=== PATIENT | male | born 1955 | race African-American/Black ===

== ENCOUNTER 2017-04-08 12:35 | Emergency (ER) | payer OTHER ==
[~2017-04-08] VITALS: Ht 172.7 cm; Wt 56.8 kg
[2017-04-08 12:36] VITALS: BP 144/89
== END 2017-04-08 13:30 | disposition left against medical advice (07) ==
LOC: M ED 12:35
DX: Z53.21 Procedure and treatment not carried out due to patient leaving prior to being seen by health care provider (principal)

== ENCOUNTER 2017-09-19 07:25 | Inpatient (IN) | payer OTHER ==
[2017-09-19 07:37] LABS: BASO % 0.1 % (0.0-1.0); HEMATOCRIT 30.5 % (42.0-52.0); HEMOGLOBIN 11.1 g/dl (13.5-17.5); IMMATURE GRANULOCYTE % 0.4 % (0-3.0); LYMPH # 0.8 10^3/uL (1.5-4.5); LYMPH % 10.5 % (24.0-44.0); MEAN CORPUSCULAR HEMOGLOBIN 31.9 pg (27.0-33.0); MEAN CORPUSCULAR HGB CONC 36.4 g/dl (32.0-36.5); MEAN CORPUSCULAR VOLUME 87.6 fl (80.0-96.0); MONO # 0.6 10^3/uL (0.0-0.8); MONO % 7.6 % (0.0-5.0); NEUTROPHILS # 6.3 10^3/uL (1.8-7.7); NEUTROPHILS % 81.4 % (36.0-66.0); PLATELET COUNT, AUTOMATED 135 10^3/uL (150-450); RED BLOOD COUNT 3.48 10^6/uL (4.30-6.10); RED CELL DISTRIBUTION WIDTH 14.4 % (11.5-14.5); WHITE BLOOD COUNT 7.8 10^3/uL (4.0-10.0)
[2017-09-19 07:40] LABS: POS COUNT POS FLAG
[2017-09-19 07:49] LABS: INR 0.92; PROTHROMBIN TIME 12.4 SECONDS (12.4-14.5)
[2017-09-19 07:51] LABS: AMMONIA 23 uMOL/L (<32)
[2017-09-19 08:03] LABS: PARTIAL THROMBOPLASTIN TIME 23.4 SECONDS (26.8-37.9)
[2017-09-19 08:06] LABS: ALBUMIN 3.1 GM/DL (3.2-5.2); ALKALINE PHOSPHATASE 87 U/L (45-117); ALT/SGPT 73 U/L (12-78); ANION GAP 15 MEQ/L (8-16); AST/SGOT 136 U/L (7-37); BILIRUBIN,DIRECT 0.5 MG/DL (0.0-0.2); BILIRUBIN,TOTAL 1.3 MG/DL (0.2-1.0); BLOOD UREA NITROGEN 28 MG/DL (7-18); CALCIUM LEVEL 8.5 MG/DL (8.8-10.2); CARBON DIOXIDE LEVEL 22 MEQ/L (21-32); CHLORIDE LEVEL 90 MEQ/L (98-107); CREATININE FOR GFR 1.11 MG/DL (0.70-1.30); GLOMERULAR FILTRATION RATE > 60.0 (>49); GLUCOSE, FASTING 154 MG/DL (70-100); LIPASE 110 U/L (73-393); MAGNESIUM LEVEL 1.4 MG/DL (1.8-2.4); POTASSIUM SERUM 3.5 MEQ/L (3.5-5.1); SODIUM LEVEL 127 MEQ/L (136-145); TOTAL PROTEIN 7.5 GM/DL (6.4-8.2); TROPONIN I < 0.02 NG/ML (< 0.10)
[2017-09-19 08:16] LABS: CK-MB VALUE MASS 1.7 NG/ML (<3.6); CPK CREATINE PHOSPHOKINASE 1617 U/L (39-308); NT-PRO BNP 292 PG/ML (<125)
[2017-09-19 08:19] LABS: ETHYL ALCOHOL (ETHANOL) < 0.003 % (0.000-0.010)
[2017-09-19 08:25] LABS: FOLATE 10.4 NG/ML (>5.4)
[2017-09-19 09:01] LABS: KETONE, URINE AUTO RFX 1+ mg/dL (NEGATIVE); MUCUS, URINE RFX SMALL (NEGATIVE); NITRITE, URINE AUTO RFX NEGATIVE (NEGATIVE); RBC, URINE AUTO RFX 2 /HPF (0-3); SPECIFIC GRAVITY UR AUTO RFX 1.026 (1.002-1.035); SQUAM EPITHELIAL CELL UR AURFX 0 /HPF (0-6)
[2017-09-19 09:12] LABS: LEUKOCYTE ESTERASE UR AUTO RFX 1+ (NEGATIVE); WBC, URINE AUTO RFX 16 /HPF (0-3)
[2017-09-19] MEDS: FOLIC ACID 1 MG TAB PO (10:25)
[2017-09-19] MEDS: MULTIVITAMINS/MINERALS THERAP 1 TAB PO (10:26)
[2017-09-19] MEDS: THIAMINE 100 MG TAB PO (10:26)
[2017-09-19] MEDS: POTASSIUM CHLORIDE 10 MEQ SR TABLET PO (10:28)
[2017-09-19] MEDS ORDERED: OXAZEPAM 10 MG CAP PO ×2 (10:30→12:15)
[2017-09-19] MEDS: MAG SULF 1GM/100ML (MAG RUN) 1 GM in APPROPRIATE DILUENT 1 EA IV (10:31)
[2017-09-19] MEDS ORDERED: ONDANSETRON 4MG/2ML VIAL (J2405) IV (11:45)
[2017-09-19] MEDS ORDERED: ACETAMINOPHEN TAB 650MG DOSE (2X325MG) PO (11:45)
[2017-09-19] MEDS ORDERED: OXAZEPAM 15 MG CAP PO (12:00)
[2017-09-19] MEDS: OXAZEPAM 10 MG CAP PO ×2 (15:52→21:16)
[2017-09-19] MEDS: PANTOPRAZOLE 40MG TAB (PROTONIX) PO (15:52)
[2017-09-19] MEDS: ENOXAPARIN 40 MG/0.4 ML SYRINGE (J1650) SC (15:53)
[2017-09-19] MEDS: SENOKOT S TAB PO (21:00)
[2017-09-20 05:34] LABS: HEMOGLOBIN 11.4 g/dl (13.5-17.5); MEAN CORPUSCULAR HEMOGLOBIN 31.5 pg (27.0-33.0); MEAN CORPUSCULAR HGB CONC 35.6 g/dl (32.0-36.5); MEAN CORPUSCULAR VOLUME 88.4 fl (80.0-96.0); PLATELET COUNT, AUTOMATED 152 10^3/uL (150-450); RED BLOOD COUNT 3.62 10^6/uL (4.30-6.10); RED CELL DISTRIBUTION WIDTH 14.2 % (11.5-14.5)
[2017-09-20 05:51] LABS: ESTIMATED AVERAGE GLUCOSE 82 MG/DL (60-110); HEMOGLOBIN A1c 4.5 %
[2017-09-20 05:56] LABS: ALBUMIN 3.1 GM/DL (3.2-5.2); ALBUMIN/GLOBULIN RATIO 0.72 (1.00-1.93); ALKALINE PHOSPHATASE 86 U/L (45-117); ALT/SGPT 69 U/L (12-78); ANION GAP 9 MEQ/L (8-16); AST/SGOT 129 U/L (7-37); BILIRUBIN,DIRECT 0.3 MG/DL (0.0-0.2); BILIRUBIN,TOTAL 0.9 MG/DL (0.2-1.0); BLOOD UREA NITROGEN 22 MG/DL (7-18); CALCIUM LEVEL 8.7 MG/DL (8.8-10.2); CARBON DIOXIDE LEVEL 27 MEQ/L (21-32); CHLORIDE LEVEL 93 MEQ/L (98-107); CHOLESTEROL LEVEL 171 MG/DL (<200); CHOLESTEROL RISK RATIO 3.226 (<5); CREATININE FOR GFR 0.74 MG/DL (0.70-1.30); FERRITIN 511 NG/ML (26-388); GLOMERULAR FILTRATION RATE > 60.0 (>49); GLUCOSE, FASTING 79 MG/DL (70-100); HDL CHOLESTEROL 53 MG/DL (>40); IRON (FE) 40 UG/DL (65-175); LDL CHOLESTEROL 96.8 MG/DL (<100); MAGNESIUM LEVEL 1.9 MG/DL (1.8-2.4); NON-HDL-C 118 MG/DL; PERCENT SATURATION 16.1 % (19.7-50.0); POTASSIUM SERUM 3.6 MEQ/L (3.5-5.1); SODIUM LEVEL 129 MEQ/L (136-145); TOTAL IRON BINDING CAPACITY 248 UG/DL (250-450); TOTAL PROTEIN 7.4 GM/DL (6.4-8.2); TRIGLYCERIDES LEVEL 106 MG/DL (<150)
[2017-09-20] MEDS: PANTOPRAZOLE 40MG TAB (PROTONIX) PO (09:05)
[2017-09-20] MEDS: OXAZEPAM 10 MG CAP PO ×3 (09:06→19:59)
[2017-09-20] MEDS: FOLIC ACID 1 MG TAB PO (09:06)
[2017-09-20] MEDS: ENOXAPARIN 40 MG/0.4 ML SYRINGE (J1650) SC (09:06)
[2017-09-20] MEDS: THIAMINE 100 MG TAB PO (09:06)
[2017-09-20] MEDS: MULTIVITAMINS/MINERALS THERAP 1 TAB PO (09:06)
[2017-09-20] MEDS: POTASSIUM CHLORIDE 10 MEQ SR TABLET PO (11:57)
[2017-09-21 06:07] LABS: HEMATOCRIT 31.8 % (42.0-52.0); HEMOGLOBIN 11.2 g/dl (13.5-17.5); MEAN CORPUSCULAR HEMOGLOBIN 31.6 pg (27.0-33.0); MEAN CORPUSCULAR HGB CONC 35.2 g/dl (32.0-36.5); MEAN CORPUSCULAR VOLUME 89.8 fl (80.0-96.0); PLATELET COUNT, AUTOMATED 194 10^3/uL (150-450); RED BLOOD COUNT 3.54 10^6/uL (4.30-6.10); RED CELL DISTRIBUTION WIDTH 14.6 % (11.5-14.5); WHITE BLOOD COUNT 6.8 10^3/uL (4.0-10.0)
[2017-09-21 06:23] LABS: ALBUMIN 3.1 GM/DL (3.2-5.2); ALBUMIN/GLOBULIN RATIO 0.76 (1.00-1.93); ALKALINE PHOSPHATASE 85 U/L (45-117); ALT/SGPT 84 U/L (12-78); ANION GAP 6 MEQ/L (8-16); AST/SGOT 143 U/L (7-37); BILIRUBIN,DIRECT 0.2 MG/DL (0.0-0.2); BILIRUBIN,TOTAL 0.7 MG/DL (0.2-1.0); BLOOD UREA NITROGEN 15 MG/DL (7-18); CALCIUM LEVEL 8.9 MG/DL (8.8-10.2); CARBON DIOXIDE LEVEL 31 MEQ/L (21-32); CHLORIDE LEVEL 96 MEQ/L (98-107); CREATININE FOR GFR 0.82 MG/DL (0.70-1.30); GLOMERULAR FILTRATION RATE > 60.0 (>49); GLUCOSE, FASTING 87 MG/DL (70-100); MAGNESIUM LEVEL 1.8 MG/DL (1.8-2.4); POTASSIUM SERUM 4.2 MEQ/L (3.5-5.1); SODIUM LEVEL 133 MEQ/L (136-145); TOTAL PROTEIN 7.2 GM/DL (6.4-8.2)
[2017-09-21 08:06] LABS: HEPATITIS A IgG TOTAL Positive (Negative)
[2017-09-21] MEDS: FOLIC ACID 1 MG TAB PO (08:14)
[2017-09-21] MEDS: PANTOPRAZOLE 40MG TAB (PROTONIX) PO (08:14)
[2017-09-21] MEDS: ENOXAPARIN 40 MG/0.4 ML SYRINGE (J1650) SC (08:14)
[2017-09-21] MEDS: OXAZEPAM 10 MG CAP PO ×2 (08:14→20:40)
[2017-09-21] MEDS: MULTIVITAMINS/MINERALS THERAP 1 TAB PO (08:14)
[2017-09-21] MEDS: THIAMINE 100 MG TAB PO (08:14)
[2017-09-22 00:08] LABS: VITAMIN B6,PYRIDOXAL PHOSPHATE 5.2 ug/L (5.3-46.7)
[2017-09-22 05:33] LABS: HEMATOCRIT 30.4 % (42.0-52.0); HEMOGLOBIN 10.7 g/dl (13.5-17.5); MEAN CORPUSCULAR HEMOGLOBIN 31.7 pg (27.0-33.0); MEAN CORPUSCULAR HGB CONC 35.2 g/dl (32.0-36.5); MEAN CORPUSCULAR VOLUME 89.9 fl (80.0-96.0); PLATELET COUNT, AUTOMATED 226 10^3/uL (150-450); RED BLOOD COUNT 3.38 10^6/uL (4.30-6.10); RED CELL DISTRIBUTION WIDTH 14.6 % (11.5-14.5); WHITE BLOOD COUNT 6.4 10^3/uL (4.0-10.0)
[2017-09-22 05:53] LABS: ALBUMIN 2.9 GM/DL (3.2-5.2); ALBUMIN/GLOBULIN RATIO 0.73 (1.00-1.93); ALKALINE PHOSPHATASE 84 U/L (45-117); ALT/SGPT 92 U/L (12-78); ANION GAP 5 MEQ/L (8-16); AST/SGOT 132 U/L (7-37); BILIRUBIN,DIRECT 0.2 MG/DL (0.0-0.2); BILIRUBIN,TOTAL 0.5 MG/DL (0.2-1.0); BLOOD UREA NITROGEN 14 MG/DL (7-18); CALCIUM LEVEL 8.7 MG/DL (8.8-10.2); CARBON DIOXIDE LEVEL 29 MEQ/L (21-32); CHLORIDE LEVEL 98 MEQ/L (98-107); GLOMERULAR FILTRATION RATE > 60.0 (>49); GLUCOSE, FASTING 88 MG/DL (70-100); MAGNESIUM LEVEL 1.8 MG/DL (1.8-2.4); POTASSIUM SERUM 3.7 MEQ/L (3.5-5.1); SODIUM LEVEL 132 MEQ/L (136-145); TOTAL PROTEIN 6.9 GM/DL (6.4-8.2)
[2017-09-22] MEDS: MULTIVITAMINS/MINERALS THERAP 1 TAB PO (08:13)
[2017-09-22] MEDS: ENOXAPARIN 40 MG/0.4 ML SYRINGE (J1650) SC (08:13)
[2017-09-22] MEDS: PANTOPRAZOLE 40MG TAB (PROTONIX) PO (08:13)
[2017-09-22] MEDS: THIAMINE 100 MG TAB PO (08:13)
[2017-09-22] MEDS: FOLIC ACID 1 MG TAB PO (08:13)
[2017-09-22] MEDS: OXAZEPAM 10 MG CAP PO (08:13)
[2017-09-22 10:19] LABS: HEPATITIS B SURFACE ANTIBODY NEGATIVE (POSITIVE)
[2017-09-22 10:28] LABS: HEPATITIS B SURFACE ANTIGEN NEGATIVE (NEGATIVE)
[2017-09-22 10:54] LABS: HEPATITIS C VIRUS ABY INDEX 0.1 INDEX (<0.8)
[2017-09-22 10:55] LABS: HEPATITIS A ANTIBODY IGM NEGATIVE (NEGATIVE)
== END 2017-09-22 12:58 | disposition home or self-care (01) | DRG 898 ==
LOC: M ED 07:25 → M ED INP 12:05 → M MSPAV 13:31
DX: F10.231 Alcohol dependence with withdrawal delirium (principal); E87.1 Hypo-osmolality and hyponatremia; F17.200 Nicotine dependence, unspecified, uncomplicated; E87.8 Other disorders of electrolyte and fluid balance, not elsewhere classified; F03.90 Unspecified dementia, unspecified severity, without behavioral disturbance, psychotic disturbance, mood disturbance, and anxiety; R74.0 Nonspecific elevation of levels of transaminase and lactic acid dehydrogenase [LDH]; I49.3 Ventricular premature depolarization; R26.81 Unsteadiness on feet; G31.9 Degenerative disease of nervous system, unspecified; Z88.0 Allergy status to penicillin

== ENCOUNTER 2020-12-08 13:30 | Inpatient (IN) | payer OTHER ==
[~2020-12-08] VITALS: Ht 172.7 cm; Wt 49.8 kg
[~2020-12-08 13:30] MED LIST: FOLI1TAB11 PO; THIA100TA PO; VITMTA PO
--- NOTE | 2020-12-08 13:52 | REP ---
INDICATION: CVA - Nursing interventions must not delay CT. COMPARISON: Comparison head CT study September 19, 2017.. TECHNIQUE: Helical scanning is acquired. 5 mm axial images were reformatted. Coronal MPR images were generated. FINDINGS: Digital preliminary carbon grinder radiograph is unremarkable. On bone window settings there is a poly sinusitis with extensive opacification in the frontal sinuses and in the maxillary sinuses bilaterally. There are air-fluid levels in the frontal sinuses. Minimal mucosal thickening is seen in the ethmoid air cells. And sphenoid sinuses. Mastoid aeration is normal and symmetric. No bony calvarial lesion is seen. On soft tissue window settings there is moderate generalized volume loss. Fairly extensive vascular calcification is observed at the skull base. There is no evidence of intracranial hemorrhage. Vascular calcification is observed. There is a new 6 mm low-density area in the anterior limb of the internal capsule on the right consistent with a lacunar infarct. This was not apparent on the September 19, 2017 prior study. There are small vessel atherosclerotic changes. There is no extra-axial fluid collection, cortical infarct, or midline shift. IMPRESSION: Vascular calcification moderate generalized volume loss. 6 mm low-density in the anterior limb of the internal capsule on the right appears to be a new finding consistent with lacunar infarction. No intracranial hemorrhage.. <Electronically signed by César Thorpe > 12/08/20 [id number]
--- NOTE | 2020-12-08 14:38 | REP ---
INDICATION: CVA. COMPARISON: None. TECHNIQUE: Single portable AP view of the chest was performed. FINDINGS: There is no acute infiltrate or pulmonary edema. Lungs are clear. The heart is not significantly enlarged. The mediastinal silhouette is unremarkable. The visualized osseous structures are intact. IMPRESSION: No acute pulmonary disease. <Electronically signed by Cuate Lin > 12/08/20 [id number]
[2020-12-08 14:39] LABS: HEMATOCRIT 40.6 % (42.0-52.0); HEMOGLOBIN 14.2 g/dl (13.5-17.5); MEAN CORPUSCULAR HEMOGLOBIN 30.9 pg (27.0-33.0); MEAN CORPUSCULAR VOLUME 88.5 fl (80.0-96.0); PLATELET COUNT, AUTOMATED 184 10^3/uL (150-450); RED BLOOD COUNT 4.59 10^6/uL (4.30-6.10); WHITE BLOOD COUNT 8.1 10^3/uL (4.0-10.0)
[2020-12-08] MEDS ORDERED: ASPIRIN 81 MG CHEW TABLET PO ONE (14:50)
[2020-12-08] MEDS ORDERED: MULTIVITAMIN -ADULT INJECTION 10 ML, THIAMINE INJection 100 MG, FOLIC ACID 1 MG in NS 1... IV ONE (14:55)
[2020-12-08] MEDS ORDERED: HOME MED LIST COMPLETE! XX SCH (15:15)
[2020-12-08 15:20] LABS: CK-MB VALUE MASS 1.5 NG/ML (<3.6); CPK CREATINE PHOSPHOKINASE 1080 U/L (39-308); MB/CK RELATIVE INDEX 0.14 (< OR =4); TROPONIN I < 0.02 NG/ML (< 0.10)
[2020-12-08] MEDS ORDERED: ACETAMINOPHEN TAB 650MG DOSE (2X325MG) PO PRN (16:00)
[2020-12-08 16:02] LABS: BASOPHILS 1 % (0-1); LYMPHOCYTES 7 % (16-44); MONOCYTES 4 % (0-5)
[2020-12-08 16:04] LABS: TARGET CELLS 2+
[2020-12-08 16:05] LABS: TEAR DROP CELLS 1+
[2020-12-08 16:07] LABS: NEUTROPHILS 65 % (28-66); PLATELET ESTIMATE NORMAL (NORMAL)
[2020-12-08 16:28] LABS: CHOLESTEROL LEVEL 156 MG/DL (<200); CHOLESTEROL RISK RATIO 2.437 (<5); HDL CHOLESTEROL 64 MG/DL (>40); LDL CHOLESTEROL 62 MG/DL (<100); NON-HDL-C 92 MG/DL; TRIGLYCERIDES LEVEL 151 MG/DL (<150)
[2020-12-08 16:31] LABS: CALCIUM LEVEL 9.5 MG/DL (8.8-10.2); CREATININE FOR GFR 1.85 MG/DL (0.70-1.30); GLOMERULAR FILTRATION RATE 47.9 (>49); POTASSIUM SERUM 3.7 MEQ/L (3.5-5.1)
[2020-12-08] MEDS: KCL 20MEQ IN D5/NS 1000ML 1,000 ML IV SCH (17:05)
[2020-12-08 17:21] LABS: RSV AMPLIFICATION NEGATIVE (NEGATIVE)
[2020-12-08] MEDS: LORazepam 2 MG TAB PO PRN ×2 (18:11→20:58)
--- NOTE | 2020-12-08 18:18 | REP ---
INDICATION: left hand weakness COMPARISON: None. TECHNIQUE: Real-time ultrasound evaluation and duplex Doppler interrogation of the extracranial carotid vasculature is performed. FINDINGS: Antegrade flow is observed in both vertebral arteries. Right carotid: The right common carotid artery shows diffuse intimal thickening but is otherwise unremarkable. There moderate mixed plaquing in the right carotid bulb and proximal ICA on two-dimensional scanning. Color flow and spectral Doppler interrogation are unremarkable on the right. Velocity chart right carotid: Right CCA PSV: 56 cm/S Right ICA PSV: 40 cm/S Right ICA EDV: 14 cm/S Right ECA PSV: 24 cm/S Right ICA/CCA ratio: 0.72 Left carotid: The left common carotid artery shows diffuse intimal thickening but is otherwise unremarkable. There is moderate mixed plaquing in the left carotid bulb and proximal ICA on two-dimensional scanning. Color flow and spectral Doppler interrogation are unremarkable on the left. Velocity chart left carotid: Left CCA PSV: 45 cm/S Left ICA PSV: 47 cm/S Left ICA EDV: 22 cm/S Left ECA PSV: 31 cm/S Left ICA/CCA ratio: 1.06 IMPRESSION: Less than 50% category narrowing in the right internal carotid artery by Doppler velocity criteria. Less than 50% category narrowing in the left ICA by Doppler velocity criteria. Relatively low velocity flow is observed in the common carotid arteries bilaterally. Question cardiac output or inflow disease. <Electronically signed by César Thorpe > 12/08/20 [id number]
--- NOTE | 2020-12-08 18:59 | HPE ---
HISTORY AND PHYSICAL DATE OF ADMISSION: 12/08/2020 CHIEF COMPLAINT: Left-sided weakness. HISTORY OF PRESENT ILLNESS: Mr. Stern is a 65-year-old -[place] gentleman who has a past medical history notable for alcoholism. He takes no medications at home. He chronically drinks about a 5th of Vodka a day. He has had multiple falls over the last several days and his family has been concerned about him and summoned emergency medical service (EMS). When they arrived, they thought he was having a facial droop, as well as left-sided weakness with slurred speech. He was brought into the emergency room where he underwent a CT scan of the had, which only showed that he had an old right anterior limb infarct. On examination, he has no focal neurologic deficits. An alcohol level is still pending at this time. Chest x-ray was unremarkable. Urinalysis has not been done. Discussion was had with the neurologist paleontological helper, who recommended bringing the patient in for further neurologic evaluation. His electrocardiogram (EKG) just showed a sinus tachycardia with a prolonged QTc of 576. I did reach out to the patient's , Asia Stern, at [phone]. She is currently out of state in [place] and will not be back for several more days. She states that her son was at home and states that he has been having frequent falls and that is why they had contacted emergency medical service (EMS). ALLERGIES: PENICILLIN, he states it causes swelling. HOME MEDICATIONS: None. PAST MEDICAL HISTORY: Chronic alcoholism. SURGICAL HISTORY: The patient denies. SOCIAL HISTORY: The patient is and lives at home with his . He is retired from the . He tells me he drinks a 5th of Vodka daily. He does not use any drugs. He does use tobacco. FAMILY HISTORY: The patient states that there is no significant past medical history of. REVIEW OF SYSTEMS: 12 systems reviewed with the patient, otherwise negative, except for what is mentioned on the history of present illness associated with is falls, left-sided weakness, poor appetite, malnutrition and falls. PHYSICAL EXAMINATION: The patient's heart rate is 135, blood pressure is 104/81, respiratory rate 20, O2 saturation is 100% on room air. General: The patient is alert and oriented to person and place. He is a little disoriented to time at this time. Head is atraumatic. His pupils are symmetric and reactive to light. He has no visible facial droop. His pupils are without any scleral icterus. Oropharynx is dry. Tympanic membranes visualized bilaterally. Nares are patent bilaterally without any visible drainage. Neck is supple. No thyromegaly. No audible stridor. No jugular venous distention (JVD). No palpable lymphadenopathy. No audible carotid bruits. Lung sounds are without any rales, wheezes or rhonchi. Has symmetric chest wall rise. Heart: S1, S2, no audible rubs or gallops. Abdomen is soft, nontender, non-distended, is scaphoid in appearance. He has no ascites. Extremities: Without any significant cyanosis, clubbing or edema. LABORATORY: Labs thus far white count is 8.1, hemoglobin 14.2, hematocrit 40.6, platelet count is 184. CPK is 1080. Troponin markers negative. APTT is 22.6. CT of the head without contrast is unremarkable. Chest x-ray is unremarkable. Electrocardiogram (EKG) showed sinus tachycardia with a prolonged QTc of 576. IMPRESSION: 1. Status post fall. 2. Left-sided weakness, rule out transient ischemic attack (TIA) versus stroke. 3. History of previous stroke seen on CT 4. Prolonged QTc 5. Chronic alcoholism. 6. Moderate to severe protein calorie malnutrition. PLAN: The patient will be admitted to an observation status with telemetry. We will obtain an MRI of his brain, carotid ultrasound, as well as echocardiogram. Will check fasting lipid profile in the a.m. The patient will be placed in Clinical Harts Withdrawal Assessment (CIWA) scale. He denies any previous history of alcoholic seizures. We will check thiamine, B12, folate and TSH levels. The patient will be placed on chemical deep venous thrombosis (DVT) prophylaxis. He will be hydrated with IV fluids along with folic acid, thiamine and multivitamins. Further recommendations to follow based on above studies. The patient will be full code with his serving as his medical surrogate
[2020-12-08 19:23] LABS: BILIRUBIN,TOTAL 0.9 MG/DL (0.2-1.0); CALCIUM LEVEL 9.2 MG/DL (8.8-10.2); CREATININE FOR GFR 1.96 MG/DL (0.70-1.30); GLOMERULAR FILTRATION RATE 44.8 (>49); POTASSIUM SERUM 3.9 MEQ/L (3.5-5.1); TOTAL PROTEIN 7.8 GM/DL (6.4-8.2)
[2020-12-08 21:16] VITALS: BP 127/89
[2020-12-08 21:16] LABS: VITAMIN B12 LEVEL 1079 PG/ML (247-911)
[2020-12-08] MEDS: THIAMINE 100 MG TAB PO SCH (21:56)
[2020-12-08] MEDS: ENOXAPARIN 40MG/0.4ML SYRINGE (J1650 PER 10MG) SC SCH (21:56)
--- NOTE | 2020-12-08 22:46 | REPVR ---
PROCEDURE INFORMATION: Exam: US Abdomen, Limited; Right Upper Quadrant Exam date and time: 12/08/2020 8:21 PM Age: 65 years old Clinical indication: Condition or disease; Other: ETOH use TECHNIQUE: Imaging protocol: US abdomen. Real time ultrasound with image documentation. Limited exam focused on the right upper quadrant. COMPARISON: No relevant prior studies available. FINDINGS: Liver: Hepatic steatosis. Gallbladder: Distended gallbladder, small amount of gallbladder sludge, no stones. No gallbladder wall thickening. Negative sonographic Sánchez sign. Common bile duct: Normal. No stones. No dilation. Pancreas: Parenchyma is obscured by bowel gas. Right kidney: Normal. No mass. No hydronephrosis. IMPRESSION: No acute abnormality. Electronically signed by: Zhao Lucero On 12/08/2020 22:45:59 PM
--- NOTE | 2020-12-08 22:58 | REPVR ---
PROCEDURE INFORMATION: Exam: MR Head Without Contrast Exam date and time: 12/08/2020 10:45 PM Age: 65 years old Clinical indication: Other: Left sided weakness TECHNIQUE: Imaging protocol: MR of the head without contrast. COMPARISON: 1. CT Head without contrast 2020-12-08 13:[address] Head without contrast 2017-09-19 07:09 FINDINGS: Brain: No diffusion restriction to suggest acute ischemia or infarction. Mild scattered FLAIR hyperintense foci within the supratentorial deep and subcortical white matter suggesting mild chronic small vessel ischemic disease. No gradient susceptibility blooming within the brain parenchyma to suggest hemorrhage. No midline shift, mass, or fluid collection is present. Diffuse cerebral age related volume loss. Cerebral ventricles: Normal. No ventriculomegaly. Bones/joints: Unremarkable. Paranasal sinuses: Chronic maxillary sinus disease with near complete opacification. Mastoid air cells: Normal as visualized. No mastoid effusion. Orbital cavity: Unremarkable. Soft tissues: Unremarkable. IMPRESSION: Mild age-related changes. No acute abnormality. Electronically signed by: Zhao Lucero On 12/08/2020 22:57:08 PM
[2020-12-09] VITALS (16 sets, daily range): BP systolic 116–138; BP diastolic 86–101
[2020-12-09] MEDS: LORazepam 2 MG TAB PO PRN (00:29)
[2020-12-09] MEDS: KCL 20MEQ IN D5/NS 1000ML 1,000 ML IV SCH ×3 (01:05→23:42)
[2020-12-09] MEDS: LORazepam 2 MG/ML VIAL IV PRN (01:09)
[2020-12-09] MEDS: OXAZEPAM 10 MG CAP PO SCH ×5 (02:45→23:40)
[2020-12-09 06:10] LABS: HEMATOCRIT 36.9 % (42.0-52.0); HEMOGLOBIN 12.8 g/dl (13.5-17.5); MEAN CORPUSCULAR HEMOGLOBIN 30.8 pg (27.0-33.0); MEAN CORPUSCULAR HGB CONC 34.7 g/dl (32.0-36.5); MEAN CORPUSCULAR VOLUME 88.7 fl (80.0-96.0); PLATELET COUNT, AUTOMATED 161 10^3/uL (150-450); RED BLOOD COUNT 4.16 10^6/uL (4.30-6.10); WHITE BLOOD COUNT 11.9 10^3/uL (4.0-10.0)
[2020-12-09 06:47] LABS: ALBUMIN 2.5 GM/DL (3.2-5.2); ALT/SGPT 34 U/L (12-78); BILIRUBIN,TOTAL 0.5 MG/DL (0.2-1.0); BLOOD UREA NITROGEN 27 MG/DL (7-18); CALCIUM LEVEL 8.1 MG/DL (8.8-10.2); CARBON DIOXIDE LEVEL 23 MEQ/L (21-32); CHLORIDE LEVEL 107 MEQ/L (98-107); CPK CREATINE PHOSPHOKINASE 1545 U/L (39-308); CREATININE FOR GFR 1.47 MG/DL (0.70-1.30); GLOMERULAR FILTRATION RATE > 60.0 (>49); GLUCOSE, FASTING 165 MG/DL (70-100); MAGNESIUM LEVEL 1.7 MG/DL (1.8-2.4); POTASSIUM SERUM 4.1 MEQ/L (3.5-5.1); SODIUM LEVEL 139 MEQ/L (136-145)
[2020-12-09] MEDS: THIAMINE 100 MG TAB PO SCH ×2 (09:00→20:15)
[2020-12-09] MEDS: MULTIVITAMINS/MINERALS THERAP 1 TAB PO SCH (09:00)
[2020-12-09] MEDS: ASPIRIN 81 MG CHEW TABLET PO SCH (09:00)
[2020-12-09] MEDS: FOLIC ACID 1 MG TAB PO SCH (09:00)
[2020-12-09] MEDS: METOPROLOL 5 MG/5 ML VIAL IV PRN ×3 (10:21→23:51)
--- NOTE | 2020-12-09 12:12 | IPNPDOC ---
Subjective Date Seen The patient was seen on 12/09/20. Subjective Chief Complaint/HPI Prakash appears to be going through DTs at this time. He is tachycardic with altered mental status. His stroke workup is negative. I've spoken to his Asia this morning and updated her. Objective Physical Examination General Exam: Positive: No Acute Distress, Other (acute encephalopathy) Eye Exam: Negative: Sclera icteric ENT Exam: Positive: Atraumatic Chest Exam: Positive: Clear to auscultation Heart Exam: Positive: Tachycardic Abdomen Exam: Positive: Normal bowel sounds, Other (protruding abdomen, nontender to palpation) Extremity Exam: Positive: Normal pulses; Negative: Clubbing, Cyanosis, Edema Skin Exam: Positive: Nl turgor and temperature; Negative: Rash, Breakdown Assessment /Plan Assessment # Left-sided weakness, ruled out acute stroke # Hx of previous CVA - continue asa and statin # Prolonged QTc on admission EKG - avoid haldol # Chronic alcoholism. # Acute DTs - liver ULS reviewed, showing only liver steatosis - [facility] protocol - check ammonia level # Moderate to severe protein calorie malnutrition - regular diet - dietary to see Dvtt: annanox Dispo: home once DTs resolve Plan/VTE VTE Prophylaxis Ordered?: Yes VS, I&O, 24H, Fishbone Vital Signs/I&O Vital Signs Date Time Temp Pulse Resp B/P (MAP) Pulse Ox O2 Delivery O2 Flow Rate FiO2 12/09/20 10:30 112 121/93 (102) 12/09/20 08:00 97.3 20 97 Room Air I&O- Last 24 Hours up to 6 AM 12/09/20 06:00 Intake Total 375 ml Output Total 0 ml Balance 375 ml Laboratory Data 24H LABS Laboratory Tests 2 12/08/20 14:28: Neutrophils (%) (Auto) , Nucleated Red Blood Cells % (auto) 0.9H, Neutrophils 65, Band Neutrophils 23H, Lymphocytes (Manual) 7L, Monocytes (Manual) 4, Basophils (Manual) 1, Target Cells 2+, Tear Drop Cells 1+, Platelet Estimate NORMAL, Activated Partial Thromboplast Time 22.6L, Total Creatine Kinase 1080H, Creatine Kinase MB 1.5, Creatine Kinase MB Relative Index 0.14, Troponin I < 0.02, Triglycerides Level 151H, Total Cholesterol 156, LDL Cholesterol 62, Non- HDL Cholesterol (LDL + VLDL) 92, Total HDL Cholesterol 64, Cholesterol/HDL Ratio 2.437 12/08/20 15:52: Anion Gap 15, Glomerular Filtration Rate 47.9L, Calcium Level 9.5, Ethyl Alcohol Level 0.003 12/08/20 16:34: Coronavirus (COVID-19)(PCR) NEGATIVE, Influenza Type A (RT-PCR) NEGATIVE, Influenza Type B (RT-PCR) NEGATIVE, Respiratory Syncytial Virus (PCR) NEGATIVE 12/08/20 18:29: Anion Gap 16, Glomerular Filtration Rate 44.8L, Calcium Level 9.2, Total Bilirubin 0.9, Aspartate Amino Transf (AST/SGOT) 107H, Alanine Aminotransferase (ALT/SGPT) 43, Alkaline Phosphatase 99, Total Protein 7.8, Albumin 3.0L, Albumin/Globulin Ratio 0.6, Vitamin B12 Level 1079H, Thyroid Stimulating Hormone (TSH) 0.684 12/09/20 05:41: Nucleated Red Blood Cells % (auto) 0.8H, Anion Gap 9, Glomerular Filtration Rate > 60.0, Calcium Level 8.1L, Magnesium Level 1.7L, Total Bilirubin 0.5, Aspartate Amino Transf (AST/SGOT) 88H, Alanine Aminotransferase (ALT/SGPT) 34, Alkaline Phosphatase 82, Total Creatine Kinase 1545H, Total Protein 7.0, Albumin 2.5L, Albumin/Globulin Ratio 0.6 12/09/20 10:45: CBC/BMP Laboratory Tests 12/08/20 14:28 12/08/20 15:52 12/08/20 18:29 12/09/20 05:41 ARTUR VO MD Dec 09, 2020 12:12
[2020-12-09 18:58] LABS: LIPASE 2106 U/L (73-393)
--- NOTE | 2020-12-09 19:12 | REPVR ---
PROCEDURE INFORMATION: Exam: CT Abdomen And Pelvis Without Contrast Exam date and time: 12/09/2020 6:25 PM Age: 65 years old Clinical indication: Other: Abd pain TECHNIQUE: Imaging protocol: Computed tomography of the abdomen and pelvis without contrast. Radiation optimization: All CT scans at this facility use at least one of these dose optimization techniques: automated exposure control; mA and/or kV adjustment per patient size (includes targeted exams where dose is matched to clinical indication); or iterative reconstruction. COMPARISON: LIVER US 12/08/2020 8:13 PM FINDINGS: Pleural spaces: small left pleural effusion. Liver: Hepatic steatosis. Liver measures 18.8 cm in craniocaudal span. Gallbladder and bile ducts: Normal. No calcified stones. No ductal dilation. Pancreas: Normal. No ductal dilation. Spleen: Normal. No splenomegaly. Adrenal glands: Left adrenal mass measuring 2.1 cm in diameter (18 H) Kidneys and ureters: Normal. No hydronephrosis. Stomach and bowel: Dilated air and fluid-filled ascending and transverse colon. Mildly dilated air and fluid containing small bowel loops present in the pelvis. Scattered rare colonic diverticula. Gastric wall thickening most significant in the body and fundus. Mild wall thickening of the duodenal bulb and 2nd portion of the duodenum.. Appendix: Appendix not seen as a separate structure. Intraperitoneal space: Stranding of the intra-abdominal fat with a small amount of intra-abdominal ascites. Vasculature: retroaortic left renal vein. Lymph nodes: Unremarkable. No enlarged lymph nodes. Urinary bladder: Unremarkable as visualized. Reproductive: Prostate measures 2.6 by 4.7 0.1 cm. Bones/joints: Unremarkable. No acute fracture. Soft tissues: Unremarkable. IMPRESSION: 1. Ileus 2. Gastric and duodenal wall thickening may in part be related to relative under distension. Gastritis/enteritis is another possibility. Sympathetic inflammation related to adjacent inflammatory process such as pancreatitis might also be considered 3. Mesenteric edema and ascites. This appears more severe in the upper abdomen. Pancreatitis should be excluded. 4. Hepatic steatosis. 5. Small left pleural effusion 6. Reticulonodular opacities left lower lobe and right middle lobe. 7. Left adrenal mass. This does not meet CT criteria for benign adenoma.Non-emergent adrenal CT is recommended. (Reference: Román) COMMENTS: Consistent with the [employer]'s Incidental Findings Committee white paper (J Am Chava Radiol 2017): For any incidental adrenal lesion greater than 1 cm but less than 4 cm classified in this report as benign, likely benign, or containing fat (including classification as an adenoma or myelolipoma), no follow-up imaging is recommended per consensus recommendations based on imaging criteria. Further lab evaluation could be pursued if warranted based on clinical findings. REFERENCES: Román SANTOYO et al. Management of Incidental Adrenal Masses: A White Paper of the ACR Incidental Findings Committee. J Am Chava Radiol. 2017;14(8):0282-6212. Electronically signed by: An Mancilla On 12/09/2020 19:12:13 PM
[2020-12-09] MEDS: ENOXAPARIN 40MG/0.4ML SYRINGE (J1650 PER 10MG) SC SCH (20:40)
--- NOTE | 2020-12-09 21:20 | ECGEPIP ---
[facility] - ED Test Date: 2020-12-08 Pat Name: CHANDRAKANT MOYER Department: Room: - Gender: Male Supervisor [employer] Process: : 1955 Requested By: Vandana Dangelo Order Number: [id number] Reading MD: Vandana Dangelo Measurements Intervals [place] Rate: 130 P: 81 FL: 136 QRS: 81 QRSD: 58 T: 87 QT: 392 QTc: 576 Interpretive Statements Sinus tachycardia Nonspecific ST and T wave abnormality prolonged qtc Electronically Signed on 12-09-2020 21:19:57 EDT by Vandana Dangelo
[2020-12-10] VITALS: BP 122/93
[2020-12-10 04:00] VITALS: BP 131/94
[2020-12-10 05:40] LABS: CPK CREATINE PHOSPHOKINASE 952 U/L (39-308)
[2020-12-10] MEDS: OXAZEPAM 10 MG CAP PO SCH ×4 (06:00→23:23)
[2020-12-10 08:45] VITALS: BP 129/90
[2020-12-10 08:52] LABS: ALBUMIN 1.8 GM/DL (3.2-5.2); ALT/SGPT 33 U/L (12-78); BILIRUBIN,TOTAL 0.5 MG/DL (0.2-1.0); BLOOD UREA NITROGEN 17 MG/DL (7-18); CALCIUM LEVEL 7.2 MG/DL (8.8-10.2); CARBON DIOXIDE LEVEL 17 MEQ/L (21-32); CHLORIDE LEVEL 120 MEQ/L (98-107); CREATININE FOR GFR 0.76 MG/DL (0.70-1.30); GLOMERULAR FILTRATION RATE > 60.0 (>49); GLUCOSE, FASTING 147 MG/DL (70-100); POTASSIUM SERUM 4.7 MEQ/L (3.5-5.1); SODIUM LEVEL 146 MEQ/L (136-145); TOTAL PROTEIN 5.6 GM/DL (6.4-8.2)
[2020-12-10] MEDS: MULTIVITAMINS/MINERALS THERAP 1 TAB PO SCH (09:00)
[2020-12-10] MEDS: FOLIC ACID 1 MG TAB PO SCH (09:00)
[2020-12-10] MEDS: THIAMINE 100 MG TAB PO SCH (09:00)
[2020-12-10] MEDS: ASPIRIN 81 MG CHEW TABLET PO SCH (09:00)
--- NOTE | 2020-12-10 09:53 | IPNPDOC ---
Subjective Date Seen The patient was seen on 12/10/20. Subjective Chief Complaint/HPI Mckay is more awake, continues to have epigastric pain Objective Physical Examination General Exam: Positive: No Acute Distress, Other (acute encephalopathy) Eye Exam: Negative: Sclera icteric ENT Exam: Positive: Atraumatic Chest Exam: Positive: Clear to auscultation Heart Exam: Positive: Tachycardic Abdomen Exam: Positive: Normal bowel sounds, Other (protruding abdomen, nontender to palpation) Extremity Exam: Positive: Normal pulses; Negative: Clubbing, Cyanosis, Edema Skin Exam: Positive: Nl turgor and temperature; Negative: Rash, Breakdown Assessment /Plan Assessment # Left-sided weakness, ruled out acute stroke # Hx of previous CVA - continue asa and statin - folate and thiamine pending - b12 and TSH normal - MRI brain and carotids are normal # Acute alcoholic pancreatitis - keep npo - continue IVFs # Prolonged QTc on admission EKG - avoid haldol # Chronic alcoholism. # Acute DTs - liver ULS reviewed, showing only liver steatosis - [facility] protocol - ammonia level is normal # Moderate to severe protein calorie malnutrition - npo - dietary to see Dvt: lovenox Dispo: home once pancreatitis and DTs resolve Patient has acute pancreatitis and will be converted to inpatient status today. Plan/VTE VTE Prophylaxis Ordered?: Yes VS, I&O, 24H, Fishbone Vital Signs/I&O Vital Signs Date Time Temp Pulse Resp B/P (MAP) Pulse Ox O2 Delivery O2 Flow Rate FiO2 12/10/20 08:45 97.9 120 18 129/90 (103) 97 Room Air I&O- Last 24 Hours up to 6 AM 12/10/20 05:59 Intake Total 2750 ml Output Total 0 ml Balance 2750 ml Laboratory Data 24H LABS Laboratory Tests 2 12/09/20 10:45: Ammonia 29 12/10/20 04:52: Anion Gap 9, Glomerular Filtration Rate > 60.0, Calcium Level 7.2L, Total Raul irubin 0.5, Aspartate Amino Transf (AST/SGOT) 86H, Alanine Aminotransferase (ALT/SGPT) 33, Alkaline Phosphatase 92, Total Creatine Kinase 952H, Total Protein 5.6L, Albumin 1.8#L, Albumin/Globulin Ratio 0.5 CBC/BMP Laboratory Tests 12/10/20 04:52 ARTUR VO MD Dec 10, 2020 09:53
[2020-12-10] MEDS ORDERED: LORazepam 2 MG/ML VIAL As Ordered ONE (10:41)
[2020-12-10] MEDS: LORazepam 2 MG/ML VIAL IV PRN (10:50)
[2020-12-10] MEDS: THIAMINE 200MG/2ML VIAL (J3411 PER 100MG) IM SCH (10:50)
[2020-12-10] MEDS: KCL 20MEQ IN D5W 1000ML 1,000 ML IV SCH ×2 (10:51→18:49)
[2020-12-10 12:00] VITALS: BP 124/94
--- NOTE | 2020-12-10 13:13 | ECHO ---
ECHOCARDIOGRAM DATE OF PROCEDURE: 12/09/2020 Age: 65 Gender: Male Height: 68 inches Weight: 99 pounds Body surface area: 1.52 m2 PATIENT LOCATION: Inpatient progressive care unit (PCU), Room 3230. REFERRING PHYSICIAN: Robert Hoyos M.D. INDICATION: Transient ischemic attack (TIA) - cardiac source of embolic material, questionable. MEASUREMENTS: 2D Measurements: RV - 2.4 cm LV - 3.8 cm Septum 1.0 cm Posterior wall 1.0 cm Aortic root 3.4 cm LA - 2.8 cm LVEF 75% Doppler Measurements: AV - 0.94 m/sec LVOT - 0.8 m/sec MV-E 40, a 60, EA ratio 0.7 Early mitral deceleration time 235 msec E prime medial 8.3 A prime medial 12 E prime lateral 7.3 Average E/E ratio 5.1 PV - 0.8 m/sec Pulmonary artery acceleration time 80 msec RVSP 32 mmHg IVC - 1.3 cm COMMENTS: Sinus tachycardia without intraventricular conduction disturbance. M-mode and 2-dimensional echocardiography was performed with pulse, continuous wave, color flow Doppler and tissue Doppler. Normal left ventricular size, wall thickness and hyperkinetic wall motion. Normal left atrial size with grade 1 left ventricular (LV) diastolic dysfunction, but currently normal estimated mean left atrial pressure. Normal right heart chamber sizes and motion with Doppler evidence of pulmonary hypertension. Somewhat reduced inferior vena cava (IVC) size with complete collapse suggestive of a relatively low central venous pressure. Normal aortic dimensions. Subtle aortic valvular sclerosis without stenosis and only trace insufficiency. Mild degenerative changes of the mitral valvular apparatus without more than trace insufficiency. Normal appearing tricuspid valve with trace insufficiency. No apparent intracardiac mass or pericardial effusion. Saline contrast study was performed from the apical 4-chamber projections. Agitated saline was administered bolus through a large forearm vein. There was excellent opacification of right heart chambers without evidence of contrast within the left ventricle.
[2020-12-10 16:00] VITALS: BP 122/97
[2020-12-10 19:28] VITALS: BP 129/89
[2020-12-10] MEDS: ENOXAPARIN 40MG/0.4ML SYRINGE (J1650 PER 10MG) SC SCH (21:07)
[2020-12-11] VITALS (8 sets, daily range): BP systolic 122–152; BP diastolic 83–99
[2020-12-11] MEDS: LORazepam 2 MG/ML VIAL IV PRN ×2 (00:04→12:43)
[2020-12-11] MEDS: KCL 20MEQ IN D5W 1000ML 1,000 ML IV SCH ×3 (02:06→17:48)
[2020-12-11] MEDS: OXAZEPAM 10 MG CAP PO SCH ×3 (05:20→17:01)
[2020-12-11 05:29] LABS: BASO % 0.2 % (0.0-1.0); EOS % 0.2 % (0.0-3.0); HEMATOCRIT 31.5 % (42.0-52.0); LYMPH # 0.7 10^3/uL (1.5-5.0); LYMPH % 6.6 % (24.0-44.0); MEAN CORPUSCULAR HEMOGLOBIN 31.2 pg (27.0-33.0); MEAN CORPUSCULAR HGB CONC 34.9 g/dl (32.0-36.5); MEAN CORPUSCULAR VOLUME 89.2 fl (80.0-96.0); MONO # 1.4 10^3/uL (0.0-0.8); MONO % 12.7 % (2.0-8.0); NEUTROPHILS # 8.6 10^3/uL (1.5-8.5); NEUTROPHILS % 79.2 % (36.0-66.0); PLATELET COUNT, AUTOMATED 154 10^3/uL (150-450); RED BLOOD COUNT 3.53 10^6/uL (4.30-6.10); WHITE BLOOD COUNT 10.9 10^3/uL (4.0-10.0)
[2020-12-11 06:03] LABS: ALBUMIN 1.9 GM/DL (3.2-5.2); ALT/SGPT 36 U/L (12-78); BILIRUBIN,TOTAL 0.4 MG/DL (0.2-1.0); BLOOD UREA NITROGEN 8 MG/DL (7-18); CALCIUM LEVEL 7.2 MG/DL (8.8-10.2); CARBON DIOXIDE LEVEL 24 MEQ/L (21-32); CHLORIDE LEVEL 107 MEQ/L (98-107); CPK CREATINE PHOSPHOKINASE 961 U/L (39-308); CREATININE FOR GFR 0.63 MG/DL (0.70-1.30); GLOMERULAR FILTRATION RATE > 60.0 (>49); GLUCOSE, FASTING 107 MG/DL (70-100); LIPASE 321 U/L (73-393); POTASSIUM SERUM 3.6 MEQ/L (3.5-5.1); SODIUM LEVEL 137 MEQ/L (136-145); TOTAL PROTEIN 5.7 GM/DL (6.4-8.2)
[2020-12-11] MEDS: ASPIRIN 81 MG CHEW TABLET PO SCH (07:42)
[2020-12-11] MEDS: MULTIVITAMINS/MINERALS THERAP 1 TAB PO SCH (07:43)
[2020-12-11] MEDS: FOLIC ACID 1 MG TAB PO SCH (07:43)
[2020-12-11] MEDS: THIAMINE 200MG/2ML VIAL (J3411 PER 100MG) IM SCH (07:57)
[2020-12-11 10:14] LABS: FOLATE > 24.0 NG/ML (>5.4)
--- NOTE | 2020-12-11 12:01 | IPNPDOC ---
Subjective Date Seen The patient was seen on 12/11/20. Subjective Chief Complaint/HPI Mckay is more alert, but remains sluggish and mumbling Objective Physical Examination General Exam: Positive: No Acute Distress, Other (acute encephalopathy) Eye Exam: Negative: Sclera icteric ENT Exam: Positive: Atraumatic Chest Exam: Positive: Clear to auscultation Heart Exam: Positive: Tachycardic Abdomen Exam: Positive: Normal bowel sounds, Soft, Tenderness (epigastric), Other (protruding abdomen) Extremity Exam: Positive: Normal pulses; Negative: Clubbing, Cyanosis, Edema Skin Exam: Positive: Nl turgor and temperature; Negative: Rash, Breakdown Assessment /Plan Assessment # Left-sided weakness, ruled out acute stroke # Hx of previous CVA - continue asa and statin - folate wnl and thiamine pending - b12 and TSH normal - MRI brain and carotids are normal # Acute alcoholic pancreatitis - keep npo, speech eval - continue IVFs - lipase normal, start clears if passes speech eval # Sinus tachy likely physiologic - lopressor IV prn # Prolonged QTc on admission EKG - avoid haldol # Chronic alcoholism. # Acute DTs - liver ULS reviewed, showing only liver steatosis - [facility] protocol - ammonia level is normal # Moderate to severe protein calorie malnutrition - npo - dietary to see Dvt: lovenox Dispo: home once pancreatitis and DTs resolve Plan/VTE VTE Prophylaxis Ordered?: Yes VS, I&O, 24H, Fishbone Vital Signs/I&O Vital Signs Date Time Temp Pulse Resp B/P (MAP) Pulse Ox O2 Delivery O2 Flow Rate FiO2 12/11/20 08:00 96.0 119 18 144/91 (108) 99 Room Air I&O- Last 24 Hours up to 6 AM 12/11/20 06:00 Intake Total 1000 ml Balance 1000 ml Laboratory Data 24H LABS Laboratory Tests 2 12/11/20 05:07: Immature Granulocyte % (Auto) 1.1, Neutrophils (%) (Auto) 79.2H, Lymphocytes (%) (Auto) 6.6L, Monocytes (%) (Auto) 12.7H, Eosinophils (%) (Auto) 0.2, Basophils (%) (Auto) 0.2, Neutrophils # (Auto) 8.6H, Lymphocytes # (Auto) 0.7L, Monocytes # (Auto) 1.4H, Eosinophils # (Auto) 0.0, Basophils # (Auto) 0.0, Nucleated Red Blood Cells % (auto) 2.1H, Anion Gap 6L, Glomerular Filtration Rate > 60.0, C alcium Level 7.2L, Total Bilirubin 0.4, Aspartate Amino Transf (AST/SGOT) 81H, Alanine Aminotransferase (ALT/SGPT) 36, Alkaline Phosphatase 96, Total Creatine Kinase 961H, Total Protein 5.7L, Albumin 1.9L, Albumin/Globulin Ratio 0.5, Lipase 321 CBC/BMP Laboratory Tests 12/11/20 05:07 ARTUR VO MD Dec 11, 2020 12:01
[2020-12-11] MEDS: ENOXAPARIN 40MG/0.4ML SYRINGE (J1650 PER 10MG) SC SCH (20:17)
[2020-12-11] MEDS: METOPROLOL 5 MG/5 ML VIAL IV PRN (20:36)
[2020-12-12] VITALS (13 sets, daily range): BP systolic 88–139; BP diastolic 60–92
[2020-12-12] MEDS: OXAZEPAM 10 MG CAP PO SCH ×4 (00:29→17:43)
[2020-12-12] MEDS: KCL 20MEQ IN D5W 1000ML 1,000 ML IV SCH (01:57)
[2020-12-12 06:19] LABS: BASO # 0.1 10^3/uL (0.0-0.2); BASO % 0.8 % (0.0-1.0); EOS % 0.2 % (0.0-3.0); HEMATOCRIT 35.1 % (42.0-52.0); HEMOGLOBIN 12.2 g/dl (13.5-17.5); LYMPH # 0.9 10^3/uL (1.5-5.0); LYMPH % 6.7 % (24.0-44.0); MEAN CORPUSCULAR HEMOGLOBIN 31.3 pg (27.0-33.0); MEAN CORPUSCULAR HGB CONC 34.8 g/dl (32.0-36.5); MONO # 2.3 10^3/uL (0.0-0.8); MONO % 18.3 % (2.0-8.0); NEUTROPHILS # 9.3 10^3/uL (1.5-8.5); NEUTROPHILS % 72.6 % (36.0-66.0); PLATELET COUNT, AUTOMATED 166 10^3/uL (150-450)
[2020-12-12 06:31] LABS: ALBUMIN 1.8 GM/DL (3.2-5.2); ALT/SGPT 36 U/L (12-78); BILIRUBIN,TOTAL 0.6 MG/DL (0.2-1.0); BLOOD UREA NITROGEN 6 MG/DL (7-18); CALCIUM LEVEL 7.4 MG/DL (8.8-10.2); CARBON DIOXIDE LEVEL 22 MEQ/L (21-32); CHLORIDE LEVEL 100 MEQ/L (98-107); CPK CREATINE PHOSPHOKINASE 648 U/L (39-308); CREATININE FOR GFR 0.57 MG/DL (0.70-1.30); GLOMERULAR FILTRATION RATE > 60.0 (>49); GLUCOSE, FASTING 125 MG/DL (70-100); LIPASE 547 U/L (73-393); POTASSIUM SERUM 4.6 MEQ/L (3.5-5.1); SODIUM LEVEL 127 MEQ/L (136-145); TOTAL PROTEIN 6.6 GM/DL (6.4-8.2)
[2020-12-12 06:32] LABS: WHITE BLOOD COUNT 12.8 10^3/uL (4.0-10.0)
[2020-12-12] MEDS: ASPIRIN 81 MG CHEW TABLET PO SCH (08:31)
[2020-12-12] MEDS: MULTIVITAMINS/MINERALS THERAP 1 TAB PO SCH (08:32)
[2020-12-12] MEDS: FOLIC ACID 1 MG TAB PO SCH (08:32)
[2020-12-12] MEDS: THIAMINE 200MG/2ML VIAL (J3411 PER 100MG) IM SCH (08:32)
[2020-12-12] MEDS: LORazepam 2 MG/ML VIAL IV PRN (10:05)
[2020-12-12] MEDS ORDERED: NS 1,000 ML IV SCH (12:05)
--- NOTE | 2020-12-12 12:09 | IPNPDOC ---
Subjective Date Seen The patient was seen on 12/12/20. Subjective Chief Complaint/HPI Mr. Stern is rather lethargic this morning. Nursing reports that he has been sleeping most of the time. They are concerned about his tachycardia which has been ranging around 130 recently. General: Reports: ROS Unobtainable (Secondary to lethargy) Objective Physical Examination General Exam: Positive: No Acute Distress, Other (acute encephalopathy); Negative: Alert (Patient will respond to tactile stimuli, but is not responding to verbal stimuli at this time) Eye Exam: Negative: Sclera icteric ENT Exam: Positive: Atraumatic, Mucous membr. moist/pink Neck Exam: Positive: Supple; Negative: Lymphadenopathy Chest Exam: Positive: Clear to auscultation Heart Exam: Positive: Tachycardic, Regular Rhythm, Normal S1, Normal S2 Telemetry: Positive: Tachycardia Abdomen Exam: Positive: Normal bowel sounds, Soft, Other (Distended abdomen) Extremity Exam: Positive: Normal pulses; Negative: Clubbing, Cyanosis, Edema Skin Exam: Positive: Nl turgor and temperature; Negative: Rash, Breakdown Neuro Exam: Positive: Normal Tone; Negative: Normal Speech Psych Exam: Negative: Mental status NL Assessment /Plan Assessment #Acute encephalopathy -Etiology is not clear at this time, probably metabolic and related to alcohol withdrawal, could still be toxic, or related to liver failure -Could be related to hyponatremia as his sodium has dropped substantially in the last couple days given that he is on IV water #Hyponatremia -Change IVFs to normal saline -We will monitor electrolytes carefully # Sinus tachy likely physiologic - lopressor IV prn #Rhabdomyolysis -His CK continues to improve -We will continue to monitor # Acute alcoholic pancreatitis - keep npo, speech eval, will consider starting clears if passes speech eval - lipase is elevated today # Left-sided weakness, ruled out acute stroke # Hx of previous CVA -I suspect these symptoms more related to his encephalopathy - continue asa and statin - b12 and TSH normal - MRI brain and carotids are normal # Prolonged QTc on admission EKG - avoid haldol # Chronic alcoholism. # Acute DTs - liver ULS reviewed, showing only liver steatosis - [facility] protocol - ammonia level is normal # Moderate to severe protein calorie malnutrition - npo - dietary to see Dvt: lovenox Dispo: home once pancreatitis and DTs resolve Plan/VTE VTE Prophylaxis Ordered?: Yes VS, I&O, 24H, Martha Vital Signs/I&O Vital Signs Date Time Temp Pulse Resp B/P (MAP) Pulse Ox O2 Delivery O2 Flow Rate FiO2 12/12/20 08:00 97.1 114 18 139/89 (106) 98 Room Air I&O- Last 24 Hours up to 6 AM 12/12/20 05:59 Intake Total 1375 ml Output Total 0 ml Balance 1375 ml Laboratory Data 24H LABS Laboratory Tests 2 12/12/20 05:50: Immature Granulocyte % (Auto) 1.4, Neutrophils (%) (Auto) 72.6H, Lymphocytes (%) (Auto) 6.7L, Monocytes (%) (Auto) 18.3H, Eosinophils (%) (Auto) 0.2, Basophils (%) (Auto) 0.8, Neutrophils # (Auto) 9.3H, Lymphocytes # (Auto) 0.9L, Monocytes # (Auto) 2.3H, Eosinophils # (Auto) 0.0, Basophils # (Auto) 0.1, Nucleated Red Blood Cells % (auto) 4.1H, Anion Gap 5L, Glomerular Filtration Rate > 60.0, Calcium Level 7.4L, Total Bilirubin 0.6, Aspartate Amino Transf (AST/SGOT) 76H, Alanine Aminotransferase (ALT/SGPT) 36, Alkaline Phosphatase 116, Total Creatine Kinase 648H, Total Protein 6.6, Albumin 1.8L, Albumin/Globulin Ratio 0.4, Lipase 547H CBC/BMP Laboratory Tests 12/12/20 05:50 Edgar Sheldon MD Dec 12, 2020 12:09
[2020-12-12 13:18] LABS: BLOOD UREA NITROGEN 6 MG/DL (7-18); CALCIUM LEVEL 7.8 MG/DL (8.8-10.2); CARBON DIOXIDE LEVEL 23 MEQ/L (21-32); CHLORIDE LEVEL 98 MEQ/L (98-107); CREATININE FOR GFR 0.58 MG/DL (0.70-1.30); GLOMERULAR FILTRATION RATE > 60.0 (>49); GLUCOSE, FASTING 102 MG/DL (70-100); POTASSIUM SERUM 3.9 MEQ/L (3.5-5.1); SODIUM LEVEL 130 MEQ/L (136-145)
--- NOTE | 2020-12-12 13:49 | REPVR ---
PROCEDURE INFORMATION: Exam: CT Head Without Contrast Exam date and time: 12/12/2020 1:31 PM Age: 65 years old Clinical indication: Other: Worsening lethergy, hyponatremia TECHNIQUE: Imaging protocol: Computed tomography of the head without contrast. Radiation optimization: All CT scans at this facility use at least one of these dose optimization techniques: automated exposure control; mA and/or kV adjustment per patient size (includes targeted exams where dose is matched to clinical indication); or iterative reconstruction. COMPARISON: MRI-Brain without Contrast 12/08/2020 10:18 PM FINDINGS: Brain: There is no acute intracranial hemorrhage, cerebral edema, or midline shift. Chronic microvascular ischemic changes are seen in the periventricular white matter. Advanced for age cerebral and cerebellar volume loss is present. Cerebral ventricles: Moderate ex vacuo dilation of the lateral and third ventricles is noted. Paranasal sinuses: Frontal sinusitis is present. There is opacification of the partially visualized left maxillary sinus. Mastoid air cells: The mastoid air cells are clear. Orbital cavity: The included orbital structures are unremarkable. Vasculature: Atherosclerotic calcifications are seen involving the cavernous carotid arteries. Bones/joints: No acute fracture. Soft tissues: Unremarkable. IMPRESSION: 1. No acute intracranial abnormality. 2. Advanced atrophy and chronic deep white matter ischemic changes. Electronically signed by: Moncho Reynolds On 12/12/2020 13:48:59 PM
[2020-12-12 14:09] LABS: HEMOGLOBIN 11.5 g/dl (13.5-17.5); MEAN CORPUSCULAR HEMOGLOBIN 30.9 pg (27.0-33.0); MEAN CORPUSCULAR HGB CONC 34.8 g/dl (32.0-36.5); MEAN CORPUSCULAR VOLUME 88.7 fl (80.0-96.0); PLATELET COUNT, AUTOMATED 172 10^3/uL (150-450); RED BLOOD COUNT 3.72 10^6/uL (4.30-6.10)
[2020-12-12 14:10] LABS: WHITE BLOOD COUNT 13.7 10^3/uL (4.0-10.0)
[2020-12-12] MEDS ORDERED: VANCOMYCIN HCL 1,000 MG, VIAL MATE ADAPTER 1 EACH in NS 250 ML IV SCH (14:15)
--- NOTE | 2020-12-12 14:23 | IPNPDOC ---
Text Note Date of Service The patient was seen on 12/12/20. NOTE I was called urgently to Mr. Stern's bedside. He had a 2 minute run of SVT on the telemetry with a rate right around 200. It broke spontaneously and around the time one of the nurses asked him to Valsalva. When I arrived at the bedside his HR was 115 and his BP was 107/74. He was still not responding to verbal stimuli, so I'm not sure if her instruction to Valsalva and the rhythm breaking was coincidental or not. He is responsive to mild painful stimuli. His , Tiana, was at the bedside and I updated her about what is going on. At present he is stable and I am not going to move him, but I will speak to a drilling machine operator about consultation to make sure that I'm not missing anything. VS,Luz Mariae, I+O VS, Luz Mariae, I+O Laboratory Tests 12/12/20 05:50 12/12/20 12:38 12/12/20 13:53 Vital Signs Date Time Temp Pulse Resp B/P (MAP) Pulse Ox O2 Delivery O2 Flow Rate FiO2 12/12/20 13:30 97.2 70 18 115/83 (94) 100 Room Air I&O- Last 24 Hours up to 6 AM 12/12/20 06:00 Intake Total 1375 ml Output Total 0 ml Balance 1375 ml Edgar Sheldon MD Dec 12, 2020 14:23
[2020-12-12 14:52] LABS: BASOPHILS 1 % (0-1); LYMPHOCYTES 7 % (16-44); MONOCYTES 16 % (0-5); NEUTROPHILS 69 % (28-66); PLATELET ESTIMATE NORMAL (NORMAL); TOXIC VACUOLATION 1+
[2020-12-12 14:53] LABS: ANISOCYTOSIS 1+; POIKILOCYTOSIS 1+; TARGET CELLS 1+
[2020-12-12] MEDS: CEFEPIME HCL 2 GM in D5W 50 ML IV SCH (15:04)
[2020-12-12] MEDS: MAG SULF 1GM/100ML (MAG RUN) 1 GM in IV 1 EA IV SCH ×4 (16:05→19:47)
[2020-12-12] MEDS: VANCOMYCIN HCL 750 MG, VIAL MATE ADAPTER 1 EACH in NS 250 ML IV SCH (16:22)
[2020-12-12] MEDS ORDERED: VANCOMYCIN HCL 500 MG in D5W MINI-BAG PLUS 100 ML IV ONE (17:00)
[2020-12-12 18:04] LABS: BLOOD UREA NITROGEN 6 MG/DL (7-18); CALCIUM LEVEL 7.4 MG/DL (8.8-10.2); CARBON DIOXIDE LEVEL 22 MEQ/L (21-32); CHLORIDE LEVEL 103 MEQ/L (98-107); CREATININE FOR GFR 0.57 MG/DL (0.70-1.30); GLOMERULAR FILTRATION RATE > 60.0 (>49); GLUCOSE, FASTING 121 MG/DL (70-100); POTASSIUM SERUM 3.3 MEQ/L (3.5-5.1); SODIUM LEVEL 133 MEQ/L (136-145)
[2020-12-12] MEDS: ENOXAPARIN 40MG/0.4ML SYRINGE (J1650 PER 10MG) SC SCH (20:40)
[2020-12-12] MEDS: KCL 10MEQ/100ML SWI (KRUN) 10 MEQ in IV 1 EA IV SCH ×2 (21:08→22:17)
[2020-12-13] VITALS: BP 111/74
[2020-12-13] MEDS: CEFEPIME HCL 2 GM in D5W 50 ML IV SCH ×2 (02:46→13:04)
[2020-12-13] MEDS: VANCOMYCIN HCL 750 MG, VIAL MATE ADAPTER 1 EACH in NS 250 ML IV SCH (03:36)
[2020-12-13 04:00] VITALS: BP 136/85
[2020-12-13 05:21] LABS: BASO # 0.1 10^3/uL (0.0-0.2); BASO % 0.4 % (0.0-1.0); EOS % 0.1 % (0.0-3.0); HEMATOCRIT 30.6 % (42.0-52.0); HEMOGLOBIN 10.9 g/dl (13.5-17.5); LYMPH # 0.5 10^3/uL (1.5-5.0); LYMPH % 3.7 % (24.0-44.0); MEAN CORPUSCULAR HEMOGLOBIN 30.9 pg (27.0-33.0); MEAN CORPUSCULAR HGB CONC 35.6 g/dl (32.0-36.5); MEAN CORPUSCULAR VOLUME 86.7 fl (80.0-96.0); MONO % 15.2 % (2.0-8.0); NEUTROPHILS # 10.5 10^3/uL (1.5-8.5); NEUTROPHILS % 79.4 % (36.0-66.0); PLATELET COUNT, AUTOMATED 226 10^3/uL (150-450); RED BLOOD COUNT 3.53 10^6/uL (4.30-6.10)
[2020-12-13 05:23] LABS: WHITE BLOOD COUNT 13.3 10^3/uL (4.0-10.0)
[2020-12-13] MEDS: OXAZEPAM 10 MG CAP PO SCH ×5 (05:25→23:51)
[2020-12-13 05:32] LABS: INR 0.93; PROTHROMBIN TIME 12.7 SECONDS (12.5-14.3)
[2020-12-13 05:50] LABS: ALBUMIN 1.8 GM/DL (3.2-5.2); ALT/SGPT 35 U/L (12-78); BILIRUBIN,TOTAL 0.6 MG/DL (0.2-1.0); BLOOD UREA NITROGEN 7 MG/DL (7-18); CARBON DIOXIDE LEVEL 24 MEQ/L (21-32); CHLORIDE LEVEL 103 MEQ/L (98-107); CREATININE FOR GFR 0.51 MG/DL (0.70-1.30); GLOMERULAR FILTRATION RATE > 60.0 (>49); GLUCOSE, FASTING 106 MG/DL (70-100); LIPASE 662 U/L (73-393); MAGNESIUM LEVEL 2.2 MG/DL (1.8-2.4); POTASSIUM SERUM 3.9 MEQ/L (3.5-5.1); SODIUM LEVEL 134 MEQ/L (136-145); TOTAL PROTEIN 5.4 GM/DL (6.4-8.2)
[2020-12-13 07:53] VITALS: BP 125/84
[2020-12-13] MEDS: THIAMINE 200MG/2ML VIAL (J3411 PER 100MG) IM SCH (10:08)
[2020-12-13] MEDS: FOLIC ACID 1 MG TAB PO SCH (10:10)
[2020-12-13] MEDS: MULTIVITAMINS/MINERALS THERAP 1 TAB PO SCH (10:10)
[2020-12-13] MEDS: ASPIRIN 81 MG CHEW TABLET PO SCH (10:10)
--- NOTE | 2020-12-13 10:39 | IPNPDOC ---
Subjective Date Seen The patient was seen on 12/13/20. Subjective Chief Complaint/HPI Mr. Stern is a little more responsive today. Nursing was able to get him out of bed and he sat in a chair for a couple of hours. This is a substantial change in improvement from where he has been until now. His mentation is still quite clouded and his responses cannot be relied on. The nursing staff is still quite concerned about his tachycardia but he does not seem to be showing any immediate ill effects from this. I continue to think it is most likely physiologic. General: Reports: ROS Unobtainable Objective Physical Examination General Exam: Positive: No Acute Distress, Other (acute encephalopathy); Negative: Alert (Although improving) Eye Exam: Positive: Conjunctiva & lids normal; Negative: Sclera icteric ENT Exam: Positive: Atraumatic, Tongue Midline; Negative: Mucous membr. moist/pink (Slightly dry) Neck Exam: Positive: Supple; Negative: JVD, Lymphadenopathy Chest Exam: Positive: Clear to auscultation Heart Exam: Positive: Tachycardic Abdomen Exam: Positive: Normal bowel sounds, Soft, Tenderness (epigastric), Ot her (protruding abdomen with apparent acsites (exam limited by pain and positioning)) Extremity Exam: Positive: Normal pulses; Negative: Edema Skin Exam: Positive: Nl turgor and temperature; Negative: Rash, Breakdown Psych Exam: Negative: Mental status NL Assessment /Plan Assessment #Acute encephalopathy -Etiology is probably metabolic and related to alcohol withdrawal. -Improving slightly today #Hyponatremia -improving and almost back into the normal range again -continue normal saline -We will monitor electrolytes carefully # Acute alcoholic pancreatitis - lipase continues to rise today, but he is reporting that the pain is a little better if anything - he is on honey thick liquids, perhaps we should back down on this - his abdomen is becoming more distended and I think he is filling with ascites, though the exam is difficult to verify based on his positioning and cooperation # Moderate to severe protein calorie malnutrition - poor nutrition still, the pancreatitis makes it difficult to build him up. I'm considering an albumin infusion, but this will only be temporary, so I'm not going to do that right now. - dietary still to see # Acute DTs - liver ULS reviewed, showing only liver steatosis - [facility] protocol # Sinus tachy likely physiologic - will just continue hydration and monitoring for now #Rhabdomyolysis -His CK continues to improve -We will continue to monitor # Chronic alcoholism. Dvt: lovenox Dispo: home once pancreatitis and DTs resolve Plan/VTE VTE Prophylaxis Ordered?: Yes VS, I&O, 24H, Fishbone Vital Signs/I&O Vital Signs Date Time Temp Pulse Resp B/P (MAP) Pulse Ox O2 Delivery O2 Flow Rate FiO2 12/13/20 07:53 96.8 112 18 125/84 (98) 97 Room Air I&O- Last 24 Hours up to 6 AM 12/13/20 06:00 Intake Total 2095 ml Output Total 1375 ml Balance 720 ml Laboratory Data 24H LABS Laboratory Tests 2 12/12/20 12:32: Lactic Acid Level 2.9*H 12/12/20 12:38: Anion Gap 9, Glomerular Filtration Rate > 60.0, Calcium Level 7.8L 12/12/20 13:53: Neutrophils (%) (Auto) , Nucleated Red Blood Cells % (auto) 3.7H, Neutrophils 69H, Band Neutrophils 7, Lymphocytes (Manual) 7L, Monocytes (Manual) 16H, Basophils (Manual) 1, Poikilocytosis 1+, Anisocytosis 1+, Target Cells 1+, Toxic Vacuolation 1+, Platelet Estimate NORMAL 12/12/20 14:23: Magnesium Level 1.2L 12/12/20 16:46: Methicillin-Resist S.aureus DNA PCR NOT DETECTED 12/12/20 17:27: Anion Gap 8, Glomerular Filtration Rate > 60.0, Lactic Acid Followup at 4 Hours 1.4, Calcium Level 7.4L 12/12/20 18:07: Bedside Glucose (Misc Panel) 151H 12/13/20 03:28: Bedside Glucose (Misc Panel) 120H 12/13/20 05:10: Immature Granulocyte % (Auto) 1.2, Neutrophils (%) (Auto) 79.4H, Lymphocytes (%) (Auto) 3.7L, Monocytes (%) (Auto) 15.2H, Eosinophils (%) (Auto) 0.1, Basophils (%) (Auto) 0.4, Neutrophils # (Auto) 10.5H, Lymphocytes # (Auto) 0.5L, Monocytes # (Auto) 2.0H, Eosinophils # (Auto) 0.0, Basophils # (Auto) 0.1, Nucleated Red Blood Cells % (auto) 1.6H, Prothrombin Time 12.7, Prothromb Time International Ratio 0.93, Activated Partial Thromboplast Time 33.0, Anion Gap 7L, Glomerular Filtration Rate > 60.0, Calcium Level 7.0L, Magnesium Level 2.2, Total Bilirubin 0.6, Aspartate Amino Transf (AST/SGOT) 65H, Alanine Aminotransferase (ALT/SGPT) 35, Alkaline Phosphatase 107, Ammonia 13, Total Protein 5.4L, Albumin 1.8L, Albumin/Globulin Ratio 0.5, Lipase 662H CBC/BMP Laboratory Tests 12/12/20 12:38 12/12/20 13:53 12/12/20 17:27 12/13/20 05:10 Microbiology Microbiology 12/12/20 Blood Culture, Received Pending 12/12/20 Blood Culture, Received Pending Edgar Sheldon MD Dec 13, 2020 10:39
[2020-12-13] MEDS: NS 1,000 ML IV SCH ×2 (10:49→23:50)
[2020-12-13 11:35] VITALS: BP 120/59
[2020-12-13] MEDS ORDERED: LIDOCAINE 1% MDV 20ML VIAL As Ordered ONE (16:04)
[2020-12-13 17:43] VITALS: BP 128/86
[2020-12-13] MEDS ORDERED: SODIUM CHLORIDE 0.9% INJ 10 ML SYR IV PRN (18:45)
[2020-12-13 20:00] VITALS: BP 113/82
[2020-12-13] MEDS: ENOXAPARIN 40MG/0.4ML SYRINGE (J1650 PER 10MG) SC SCH (20:46)
[2020-12-14] VITALS: BP 119/77
[2020-12-14] MEDS: CEFEPIME HCL 2 GM in D5W 50 ML IV SCH ×2 (02:13→14:53)
[2020-12-14 04:00] VITALS: BP 125/79
[2020-12-14] MEDS: OXAZEPAM 10 MG CAP PO SCH ×3 (06:18→21:47)
[2020-12-14] MEDS: SODIUM CHLORIDE 0.9% INJ 10 ML SYR IV SCH ×2 (06:19→18:04)
[2020-12-14 06:40] LABS: HEMATOCRIT 25.9 % (42.0-52.0); HEMOGLOBIN 9.1 g/dl (13.5-17.5); MEAN CORPUSCULAR HEMOGLOBIN 30.8 pg (27.0-33.0); MEAN CORPUSCULAR HGB CONC 35.1 g/dl (32.0-36.5); MEAN CORPUSCULAR VOLUME 87.8 fl (80.0-96.0); PLATELET COUNT, AUTOMATED 238 10^3/uL (150-450); RED BLOOD COUNT 2.95 10^6/uL (4.30-6.10)
[2020-12-14 07:03] LABS: ALBUMIN 1.6 GM/DL (3.2-5.2); BLOOD UREA NITROGEN 6 MG/DL (7-18); CALCIUM LEVEL 7.1 MG/DL (8.8-10.2); CARBON DIOXIDE LEVEL 26 MEQ/L (21-32); CHLORIDE LEVEL 107 MEQ/L (98-107); CREATININE FOR GFR 0.36 MG/DL (0.70-1.30); FERRITIN 525 NG/ML (26-388); GLOMERULAR FILTRATION RATE > 60.0 (>49); GLUCOSE, FASTING 73 MG/DL (70-100); IRON (FE) 13 UG/DL (65-175); LIPASE 757 U/L (73-393); PERCENT SATURATION 13.8 % (19.7-50.0); PHOSPHORUS LEVEL 1.9 MG/DL (2.5-4.9); POTASSIUM SERUM 3.2 MEQ/L (3.5-5.1); SODIUM LEVEL 138 MEQ/L (136-145); TOTAL IRON BINDING CAPACITY 94 UG/DL (250-450)
[2020-12-14 07:04] LABS: BLOOD UREA NITROGEN 7 MG/DL (7-18); CALCIUM LEVEL 7.4 MG/DL (8.8-10.2); CARBON DIOXIDE LEVEL 26 MEQ/L (21-32); CHLORIDE LEVEL 106 MEQ/L (98-107); GLOMERULAR FILTRATION RATE > 60.0 (>49); GLUCOSE, FASTING 76 MG/DL (70-100); SODIUM LEVEL 137 MEQ/L (136-145)
[2020-12-14 07:09] LABS: LYMPHOCYTES 6 % (16-44); MONOCYTES 5 % (0-5); NEUTROPHILS 89 % (28-66); PLATELET ESTIMATE NORMAL (NORMAL)
--- NOTE | 2020-12-14 07:53 | REP ---
INDICATION: rapidly changing volume status, difficult access. COMPARISON: None. TECHNIQUE: The procedure was performed under the direct supervision of Dr. Thorpe. The risks and benefits of the procedure were explained to the patient and informed consent was obtained. The right brachial vein was localized using ultrasound guidance. The skin was prepped and draped in a sterile fashion. 1 mL of 1% lidocaine was used as a local anesthetic. Using ultrasound guidance the brachial vein was cannulated and a 0.018 guidewire was inserted and advanced to the SVC using fluoroscopic guidance, and last image hold technology. The needle was removed and a 5 Romanian dilator and peel-away sheath was inserted over the guide wire. A 5 Romanian dual lumen catheter was cut to length of 46 cm. The dilator was removed and the catheter was inserted over the guide wire with the tip ending in the SVC. The peel-away sheath was removed and the catheter was flushed with heparinized saline as per Hospital protocol. The catheter was affixed to the skin and a sterile dressing was applied. Estimated blood loss: Less than 1 mL The patient tolerated the procedure well and there were no immediate complications. 0.2 minutes of fluoro time was utilized for this procedure. FINDINGS: None IMPRESSION: PICC line insertion right brachial vein with the tip ending in the SVC <Electronically signed by Hakeem Robbins > 12/13/20 1244 <Electronically signed by César Thorpe > 12/14/20 [id number]
[2020-12-14 08:00] VITALS: BP 122/74
[2020-12-14] MEDS: FOLIC ACID 1 MG TAB PO SCH (09:15)
[2020-12-14] MEDS: MULTIVITAMINS/MINERALS THERAP 1 TAB PO SCH (09:16)
[2020-12-14] MEDS: ASPIRIN 81 MG CHEW TABLET PO SCH (09:16)
[2020-12-14] MEDS: THIAMINE 200MG/2ML VIAL (J3411 PER 100MG) IM SCH (09:16)
[2020-12-14] MEDS: NS 1,000 ML IV SCH ×2 (10:46→21:48)
[2020-12-14 12:00] VITALS: BP 110/73
--- NOTE | 2020-12-14 12:47 | IPNPDOC ---
Subjective Date Seen The patient was seen on 12/14/20. Subjective Chief Complaint/HPI Mr. Stern continues to be more alert each day. His conversation is still very confused. For example he spent several minutes trying to figure out where he knows me from, but I am pretty confident we have never met. Still the fact that he is engaging me in conversation is an improvement. Unfortunately his abdomen continues to become more distended as well. Despite this he does not have significant complaints. Constitutional: Denies: Chills, Fever Pulmonary: Denies: Dyspnea, Cough Cardiovascular: Denies: Chest Pain, Palpitations Gastrointestinal: Reports: Abdominal Pain; Denies: Nausea, Vomiting Psych: Reports: Memory Issues Objective Physical Examination General Exam: Positive: Alert (Although confused), Cooperative (Sitting up in his chair when I entered his room), No Acute Distress Eye Exam: Positive: Conjunctiva & lids normal; Negative: Sclera icteric ENT Exam: Positive: Atraumatic, Mucous membr. moist/pink, Tongue Midline Neck Exam: Positive: Supple; Negative: JVD, Lymphadenopathy Chest Exam: Positive: Clear to auscultation Heart Exam: Positive: Rate Normal, Regular Rhythm Telemetry: Positive: No significant arrhythmia Abdomen Exam: Positive: BS Hypoactive, Soft, Tenderness (More diffuse, left upper quadrant), Other (Abdomen is more tense than yesterday) Extremity Exam: Positive: Normal pulses; Negative: Edema Skin Exam: Positive: Nl turgor and temperature; Negative: Rash Assessment /Plan Assessment # Acute alcoholic pancreatitis - lipase continues to rise today, I'm becoming concerned about pancreatic pseuodcysts - his abdomen is becoming more distended and I think he is filling with ascites -I will repeat the CT abdomen and pelvis with oral and IV contrast -I have requested an US guided diagnostic paracentesis to help me better characterize what is going on in his peritoneal cavity #Acute encephalopathy -Etiology is probably metabolic and related to alcohol withdrawal. -Improving significantly by the day now # Acute DTs - ciwa protocol, though soon he may not need this #Hyponatremia, resolved -continue normal saline -We will monitor electrolytes carefully # Moderate to severe protein calorie malnutrition - poor nutrition still, the pancreatitis makes it difficult to build him up. I think this is leading to 3rd spacing of fluids too. # Sinus tachy, resolved today - continue hydration and monitoring for now #Rhabdomyolysis, resolved -His CK has normalized now # Chronic alcoholism. Dvt: lovenox Dispo: home once pancreatitis and DTs resolve Plan/VTE VTE Prophylaxis Ordered?: Yes VS, I&O, 24H, Fishbone Vital Signs/I&O Vital Signs Date Time Temp Pulse Resp B/P (MAP) Pulse Ox O2 Delivery O2 Flow Rate FiO2 12/14/20 12:00 96.0 94 20 110/73 (85) 99 Room Air I&O- Last 24 Hours up to 6 AM 12/14/20 06:00 Intake Total 625 ml Output Total 1100 ml Balance -475 ml Laboratory Data 24H LABS Laboratory Tests 2 12/13/20 17:34: Bedside Glucose (Misc Panel) 94 12/14/20 00:58: Bedside Glucose (Misc Panel) 77L 12/14/20 02:55: Magnesium Level 1.9 12/14/20 06:20: Neutrophils (%) (Auto) , Nucleated Red Blood Cells % (auto) 0.3H, Neutrophils 89H, Lymphocytes (Manual) 6L, Monocytes (Manual) 5, Platelet Estimate NORMAL, Anion Gap 5L, Glomerular Filtration Rate > 60.0, Calcium Level 7.1L, Phosphorus Level 1.9L, Iron Level 13L, Total Iron Binding Capacity 94L, Transferrin % Saturation 13.8L, Ferritin 525H, C-Reactive Protein, Quantitative 13.20H, Albumin 1.6L, Lipase 757H 12/14/20 12:03: Bedside Glucose (Misc Panel) 84 CBC/BMP Laboratory Tests 12/14/20 06:20 Microbiology Microbiology 12/12/20 Blood Culture - Preliminary, Resulted No growth after 24 hours . All specim... 12/12/20 Blood Culture - Preliminary, Resulted No growth after 24 hours . All specim... Edgar Sheldon MD Dec 14, 2020 12:47
[2020-12-14] MEDS: GASTROGRAFIN SOLUTION 30ML PO SCH ×2 (13:48→15:15)
[2020-12-14 16:00] VITALS: BP 115/76
[2020-12-14] MEDS ORDERED: ISOVUE-370 76% 100ML VIAL As Ordered ONE (16:48)
--- NOTE | 2020-12-14 17:38 | REP ---
INDICATION: pancreatitis, ? pseudocysts. COMPARISON: Comparison study December 09, 2020.. TECHNIQUE: Helical scanning is acquired following the intravenous injection of 100 mL of Isovue 370. Oral dilute Gastrografin is also administered. 3 mm axial images re-formatted. Coronal and sagittal MPR images are generated. FINDINGS: Preliminary digital battery mechanic radiograph demonstrates a prominent pattern of abdominal ileus with a moderate to marked distension of the right colon and transverse colon. There are air-filled loops of small bowel in the central abdomen. The stomach is somewhat dilated as well. There are bilateral pleural effusions, left greater than right both of which are increased from the comparison study. The right pleural effusion is new. There is discoid atelectasis in the left base posteriorly. Diffuse fatty infiltration of the liver is again noted. There is significant increase in peripancreatic edema consistent with pancreatitis. There is no evidence of pancreatic necrosis or abscess or hemorrhagic pancreatitis by CT criteria. The left adrenal nodule is again seen unchanged. There is no evidence of gallstone by CT although this does not exclude cholelithiasis. The biliary ducts are not dilated. The pancreatic duct is not appear to be dilated. There is mesenteric fat streaking consistent with the pancreatitis. A tiny sliver of fluid is seen in each pericolic gutter. There is not sufficient ascites to allow for paracentesis. Krishnan catheter is seen in the urinary bladder. Prostate and seminal vesicles are unremarkable. Small and large bowel loops show no obstructive lesion. Ileus pattern as described above. No evidence of free air. The kidneys enhance symmetrically and appear morphologically intact. There is a benign lipoma in the left gluteus yandel muscle. IMPRESSION: Findings consistent with acute pancreatitis with moderate to marked ileus in the bowel gas increased peripancreatic fluid, increased bilateral pleural effusions left larger than right, but no evidence of pancreatic necrosis, abscess, or hemorrhagic pancreatitis. There is less ascitic fluid, not sufficient for paracentesis. <Electronically signed by César Thorpe > 12/14/20 [id number]
[2020-12-14 18:14] LABS: CPK CREATINE PHOSPHOKINASE 127 U/L (39-308)
[2020-12-14 20:00] VITALS: BP 123/80
[2020-12-14] MEDS: ENOXAPARIN 40MG/0.4ML SYRINGE (J1650 PER 10MG) SC SCH (21:47)
[2020-12-14] MEDS ORDERED: POTASSIUM CHLORIDE 10 MEQ SR TABLET PO ONE (22:50)
[2020-12-14] MEDS: DOCUSATE SODIUM 100MG CAPSULE PO SCH (23:04)
[2020-12-14] MEDS: KCL 20MEQ in NS 1000ML 1,000 ML IV SCH (23:25)
[2020-12-14] MEDS: FERROUS GLUCONATE 324 MG TAB PO SCH (23:27)
[2020-12-15] VITALS: BP 139/83
[2020-12-15] MEDS: CEFEPIME HCL 2 GM in D5W 50 ML IV SCH ×2 (02:00→15:23)
[2020-12-15 04:00] VITALS: BP 116/77
[2020-12-15] MEDS: SODIUM CHLORIDE 0.9% INJ 10 ML SYR IV SCH ×2 (05:22→18:00)
[2020-12-15] MEDS: OXAZEPAM 10 MG CAP PO SCH ×3 (05:22→21:17)
[2020-12-15 05:46] LABS: HEMATOCRIT 25.5 % (42.0-52.0); HEMOGLOBIN 8.9 g/dl (13.5-17.5); MEAN CORPUSCULAR HEMOGLOBIN 30.4 pg (27.0-33.0); MEAN CORPUSCULAR HGB CONC 34.9 g/dl (32.0-36.5); PLATELET COUNT, AUTOMATED 263 10^3/uL (150-450); RED BLOOD COUNT 2.93 10^6/uL (4.30-6.10); WHITE BLOOD COUNT 15.2 10^3/uL (4.0-10.0)
[2020-12-15 06:01] LABS: ALBUMIN 1.6 GM/DL (3.2-5.2); ALT/SGPT 42 U/L (12-78); BILIRUBIN,TOTAL 0.3 MG/DL (0.2-1.0); BLOOD UREA NITROGEN 5 MG/DL (7-18); CALCIUM LEVEL 7.2 MG/DL (8.8-10.2); CARBON DIOXIDE LEVEL 25 MEQ/L (21-32); CHLORIDE LEVEL 111 MEQ/L (98-107); CREATININE FOR GFR 0.35 MG/DL (0.70-1.30); GLOMERULAR FILTRATION RATE > 60.0 (>49); GLUCOSE, FASTING 77 MG/DL (70-100); LIPASE 606 U/L (73-393); POTASSIUM SERUM 3.3 MEQ/L (3.5-5.1); SODIUM LEVEL 141 MEQ/L (136-145); TOTAL PROTEIN 4.9 GM/DL (6.4-8.2)
[2020-12-15 06:19] LABS: BASOPHILS 1 % (0-1); LYMPHOCYTES 5 % (16-44); MONOCYTES 3 % (0-5); NEUTROPHILS 89 % (28-66)
[2020-12-15 06:20] LABS: PLATELET ESTIMATE NORMAL (NORMAL)
[2020-12-15 08:00] VITALS: BP 132/87
[2020-12-15] MEDS: KCL 20MEQ in NS 1000ML 1,000 ML IV SCH ×2 (08:50→18:49)
[2020-12-15] MEDS: FOLIC ACID 1 MG TAB PO SCH (08:58)
[2020-12-15] MEDS: MULTIVITAMINS/MINERALS THERAP 1 TAB PO SCH (08:58)
[2020-12-15] MEDS: ASPIRIN 81 MG CHEW TABLET PO SCH (08:58)
[2020-12-15] MEDS: THIAMINE 200MG/2ML VIAL (J3411 PER 100MG) IM SCH (08:59)
[2020-12-15] MEDS: DOCUSATE SODIUM 100MG CAPSULE PO SCH ×2 (08:59→21:17)
[2020-12-15] MEDS: FERROUS GLUCONATE 324 MG TAB PO SCH ×2 (08:59→21:17)
[2020-12-15] MEDS: THIAMINE 100 MG TAB PO SCH (10:36)
[2020-12-15 12:00] VITALS: BP 135/79
[2020-12-15 16:00] VITALS: BP 137/84
[2020-12-15 20:00] VITALS: BP 137/84
[2020-12-15] MEDS: ENOXAPARIN 40MG/0.4ML SYRINGE (J1650 PER 10MG) SC SCH (21:17)
--- NOTE | 2020-12-15 23:43 | IPNPDOC ---
Subjective Date Seen The patient was seen on 12/15/20. Subjective Chief Complaint/HPI Mr. Mcnally mentation seems back to normal today. The nurses are pleased with his progress. He has eaten at least 25% if not more of each of his meals today. The CT from yesterday demonstrated that he does not have significant ascites; in fact it is less than CT from his admission. What he does have is a significant ileus. There is also a question of a pseudoaneurysm or some sort of vascular lesion in the posterior aspect of his stomach. I did discuss this with him today and it will require further evaluation. We also spent a significant amount of time talking about his alcoholism. Including goals for the future with regards to addressing this. He seems engaged in the change process. General: Denies: Normal Appetite (Improving each day) Constitutional: Denies: Chills, Fever Pulmonary: Denies: Dyspnea, Cough Cardiovascular: Denies: Chest Pain, Palpitations Gastrointestinal: Denies: Nausea, Vomiting Psych: Reports: Mood Normal Objective Physical Examination General Exam: Positive: Alert, Cooperative (sitting on the side of the bed today when I entered the room), No Acute Distress Eye Exam: Positive: Conjunctiva & lids normal; Negative: Sclera icteric ENT Exam: Positive: Atraumatic, Mucous membr. moist/pink Neck Exam: Positive: Supple; Negative: Lymphadenopathy Chest Exam: Positive: Clear to auscultation, Normal air movement Heart Exam: Positive: Rate Normal, Regular Rhythm, Normal S1, Normal S2 Telemetry: Positive: No significant arrhythmia Abdomen Exam: Positive: Normal bowel sounds, Soft, Other (Distended abdomen, actually a little improved today) Extremity Exam: Positive: Normal pulses; Negative: Edema Skin Exam: Positive: Nl turgor and temperature; Negative: Rash Neuro Exam: Positive: Normal Speech, Normal Tone Psych Exam: Positive: Mental status NL, Mood NL, Memory Intact, Oriented x 3 Assessment /Plan Assessment # Acute alcoholic pancreatitis - lipase started to come down today -The CT from yesterday shows significant pancreatitis still, but no pseudocysts -There is some vascular type lesion in the posterior aspect of the stomach that will require further evaluation -There was not enough ascites for paracentesis so this did not happen. #Acute encephalopathy, resolved today # Acute DTs -We were able to discontinue the CIWA protocol today # Moderate to severe protein calorie malnutrition - poor nutrition still, the pancreatitis makes it difficult to build him up. -Dietary did see him today # Chronic alcoholism. -He appears to be in the preparation stage of change -He states that he is committed to not starting drinking again. He does not want to get this sick again. -He would like to consider some medication to help with his cravings. I will probably start him on Campral as he nears discharge. -We discussed the importance of some sort of outpatient counseling or accountability (like AA) once he is discharged. Dvt: lovenox Dispo: home once pancreatitis and DTs resolve Plan/VTE VTE Prophylaxis Ordered?: Yes VS, I&O, 24H, Fishbone Vital Signs/I&O Vital Signs Date Time Temp Pulse Resp B/P (MAP) Pulse Ox O2 Delivery O2 Flow Rate FiO2 12/15/20 20:00 96.8 98 18 137/84 (101) 98 Room Air I&O- Last 24 Hours up to 6 AM 12/15/20 06:00 Intake Total 1600 ml Output Total 1950 ml Balance -350 ml Laboratory Data 24H LABS Laboratory Tests 2 12/15/20 05:18: Neutrophils (%) (Auto) , Nucleated Red Blood Cells % (auto) 0.0, Neutrophils 89H, Band Neutrophils 2, Lymphocytes (Manual) 5L, Monocytes (Manual) 3, Basophils (Manual) 1, Red Blood Cell Morphology NORMAL, Platelet Estimate NORMAL, Anion Gap 5L, Glomerular Filtration Rate > 60.0, Calcium Level 7.2L, Total Bilirubin 0.3, Aspartate Amino Transf (AST/SGOT) 67H, Alanine A minotransferase (ALT/SGPT) 42, Alkaline Phosphatase 103, C-Reactive Protein, Quantitative 12.60H, Total Protein 4.9L, Albumin 1.6L, Albumin/Globulin Ratio 0.5, Lipase 606H CBC/BMP Laboratory Tests 12/15/20 05:18 Microbiology Microbiology 12/12/20 Blood Culture - Preliminary, Resulted No Growth after 72 hours. All specime... 12/12/20 Blood Culture - Preliminary, Resulted No Growth after 72 hours. All specime... Edgar Sheldon MD Dec 15, 2020 23:43
[2020-12-16] VITALS: BP 125/82
[2020-12-16] MEDS: CEFEPIME HCL 2 GM in D5W 50 ML IV SCH ×2 (02:08→13:14)
[2020-12-16 04:00] VITALS: BP 129/81
[2020-12-16] MEDS: KCL 20MEQ in NS 1000ML 1,000 ML IV SCH ×2 (05:55→14:50)
[2020-12-16] MEDS: OXAZEPAM 10 MG CAP PO SCH ×3 (05:55→21:01)
[2020-12-16] MEDS: SODIUM CHLORIDE 0.9% INJ 10 ML SYR IV SCH ×2 (05:56→17:14)
[2020-12-16 06:26] LABS: BASO % 0.3 % (0.0-1.0); EOS % 0.2 % (0.0-3.0); HEMOGLOBIN 9.3 g/dl (13.5-17.5); LYMPH # 1.1 10^3/uL (1.5-5.0); LYMPH % 8.4 % (24.0-44.0); MEAN CORPUSCULAR HEMOGLOBIN 30.6 pg (27.0-33.0); MEAN CORPUSCULAR HGB CONC 35.8 g/dl (32.0-36.5); MEAN CORPUSCULAR VOLUME 85.5 fl (80.0-96.0); MONO # 1.2 10^3/uL (0.0-0.8); NEUTROPHILS # 10.8 10^3/uL (1.5-8.5); NEUTROPHILS % 79.7 % (36.0-66.0); PLATELET COUNT, AUTOMATED 333 10^3/uL (150-450); RED BLOOD COUNT 3.04 10^6/uL (4.30-6.10); WHITE BLOOD COUNT 13.5 10^3/uL (4.0-10.0)
[2020-12-16 06:52] LABS: ALBUMIN 1.8 GM/DL (3.2-5.2); BLOOD UREA NITROGEN 4 MG/DL (7-18); CALCIUM LEVEL 7.7 MG/DL (8.8-10.2); CARBON DIOXIDE LEVEL 25 MEQ/L (21-32); CHLORIDE LEVEL 112 MEQ/L (98-107); CREATININE FOR GFR 0.45 MG/DL (0.70-1.30); GLOMERULAR FILTRATION RATE > 60.0 (>49); GLUCOSE, FASTING 78 MG/DL (70-100); LIPASE 870 U/L (73-393); PHOSPHORUS LEVEL 1.9 MG/DL (2.5-4.9); POTASSIUM SERUM 4.1 MEQ/L (3.5-5.1); SODIUM LEVEL 142 MEQ/L (136-145)
[2020-12-16 08:00] VITALS: BP 121/79
[2020-12-16] MEDS: FOLIC ACID 1 MG TAB PO SCH (08:13)
[2020-12-16] MEDS: MULTIVITAMINS/MINERALS THERAP 1 TAB PO SCH (08:13)
[2020-12-16] MEDS: ASPIRIN 81 MG CHEW TABLET PO SCH (08:13)
[2020-12-16] MEDS: THIAMINE 100 MG TAB PO SCH (08:13)
[2020-12-16] MEDS: FERROUS GLUCONATE 324 MG TAB PO SCH ×2 (09:00→21:01)
[2020-12-16] MEDS: DOCUSATE SODIUM 100MG CAPSULE PO SCH ×2 (09:00→21:00)
[2020-12-16 12:00] VITALS: BP 120/77
[2020-12-16 16:00] VITALS: BP 126/80
[2020-12-16 20:00] VITALS: BP 132/83
[2020-12-16] MEDS: ENOXAPARIN 40MG/0.4ML SYRINGE (J1650 PER 10MG) SC SCH (21:00)
--- NOTE | 2020-12-16 23:52 | IPNPDOC ---
Subjective Date Seen The patient was seen on 12/16/20. Subjective Chief Complaint/HPI Mr. Stern had a good day today. Nurses report that he ate at least 50% of everything on his tray. He reports when he eats he does not have any abdominal pain. He was able to have a large bowel movement, which indicates to me that the ileus is really resolving. He is able to do some things in his room semiindependently. General: Reports: Normal Appetite Constitutional: Denies: Chills, Fever Pulmonary: Denies: Dyspnea, Cough Cardiovascular: Denies: Chest Pain, Palpitations Gastrointestinal: Denies: Nausea, Vomiting, Abdominal Pain Genitourinary: Denies: Dysuria Psych: Reports: Mood Normal Objective Physical Examination General Exam: Positive: Alert, Cooperative (sitting on the side of the bed today when I entered the room), No Acute Distress Eye Exam: Positive: Conjunctiva & lids normal; Negative: Sclera icteric ENT Exam: Positive: Atraumatic, Mucous membr. moist/pink Neck Exam: Positive: Supple; Negative: Lymphadenopathy Chest Exam: Positive: Clear to auscultation, Normal air movement Heart Exam: Positive: Rate Normal, Regular Rhythm, Normal S1, Normal S2 Telemetry: Positive: No significant arrhythmia Abdomen Exam: Positive: Normal bowel sounds, Soft, Other (His abdomen is almost back down to flat today); Negative: Tenderness Extremity Exam: Positive: Normal pulses; Negative: Edema Skin Exam: Positive: Nl turgor and temperature; Negative: Rash Neuro Exam: Positive: Normal Speech, Normal Tone Psych Exam: Positive: Mental status NL, Mood NL, Memory Intact, Oriented x 3 Assessment /Plan Assessment # Acute alcoholic pancreatitis - lipase bumped a little again today, but this is probably related to refeeding -There is some vascular type lesion in the posterior aspect of the stomach that will require further evaluation. I will order a contrasted CT for tomorrow. # Moderate to severe protein calorie malnutrition -His albumin is starting to improve as he is able to get some nutrition in. It is not great yet, but is heading in the right direction -Dietary did see him again today # Chronic alcoholism. -He appears to be in the preparation stage of change -He states that he is committed to not starting drinking again. He does not want to get this sick again. -He would like to consider some medication to help with his cravings. I will probably start him on Campral as he nears discharge. -We discussed the importance of some sort of outpatient counseling or accountability (like AA) once he is discharged. Dvt: lovenox Plan/VTE VTE Prophylaxis Ordered?: Yes Disposition I think I will likely be able to transfer him to the floor tomorrow. VS, I&O, 24H, Fishbone Vital Signs/I&O Vital Signs Date Time Temp Pulse Resp B/P (MAP) Pulse Ox O2 Delivery O2 Flow Rate FiO2 12/16/20 20:00 96.4 100 16 132/83 (99) 99 Room Air I&O- Last 24 Hours up to 6 AM 12/16/20 06:00 Intake Total 120 ml Output Total 1600 ml Balance -1480 ml Laboratory Data 24H LABS Laboratory Tests 2 12/16/20 05:54: Immature Granulocyte % (Auto) 2.4, Neutrophils (%) (Auto) 79.7H, Lymphocytes (%) (Auto) 8.4L, Monocytes (%) (Auto) 9.0H, Eosinophils (%) (Auto) 0.2, Basophils (%) (Auto) 0.3, Neutrophils # (Auto) 10.8H, Lymphocytes # (Auto) 1.1L, Monocytes # (Auto) 1.2H, Eosinophils # (Auto) 0.0, Basophils # (Auto) 0.0, Nucleated Red Blood Cells % (auto) 0.2H, Anion Gap 5L, Glomerular Filtration Rate > 60.0, Calcium Level 7.7L, Phosphorus Level 1.9L, C-Reactive Protein, Quantitative 11.80H, Albumin 1.8L, Lipase 870H CBC/BMP Laboratory Tests 12/16/20 05:54 Microbiology Microbiology 12/12/20 Blood Culture - Preliminary, Resulted No Growth after 72 hours. All specime... 12/12/20 Blood Culture - Preliminary, Resulted No Growth after 72 hours. All specime... Edgar Sheldon MD Dec 16, 2020 23:52
[2020-12-17] VITALS: BP 129/79
[2020-12-17] MEDS: KCL 20MEQ in NS 1000ML 1,000 ML IV SCH ×2 (02:48→10:50)
[2020-12-17 04:00] VITALS: BP 135/92
[2020-12-17] MEDS: SODIUM CHLORIDE 0.9% INJ 10 ML SYR IV SCH ×2 (05:46→17:03)
[2020-12-17] MEDS: OXAZEPAM 10 MG CAP PO SCH ×3 (05:46→22:37)
[2020-12-17 06:17] LABS: HEMATOCRIT 25.4 % (42.0-52.0); HEMOGLOBIN 8.9 g/dl (13.5-17.5); MEAN CORPUSCULAR HEMOGLOBIN 30.5 pg (27.0-33.0); PLATELET COUNT, AUTOMATED 348 10^3/uL (150-450); RED BLOOD COUNT 2.92 10^6/uL (4.30-6.10); WHITE BLOOD COUNT 11.8 10^3/uL (4.0-10.0)
[2020-12-17 06:40] LABS: ALBUMIN 1.8 GM/DL (3.2-5.2); ALT/SGPT 41 U/L (12-78); BILIRUBIN,TOTAL 0.3 MG/DL (0.2-1.0); BLOOD UREA NITROGEN 3 MG/DL (7-18); C REACTIVE PROTEIN QUANTITATIV 8.61 MG/DL (0.00-0.30); CALCIUM LEVEL 7.9 MG/DL (8.8-10.2); CARBON DIOXIDE LEVEL 26 MEQ/L (21-32); CHLORIDE LEVEL 109 MEQ/L (98-107); CREATININE FOR GFR 0.42 MG/DL (0.70-1.30); GLOMERULAR FILTRATION RATE > 60.0 (>49); GLUCOSE, FASTING 70 MG/DL (70-100); LIPASE 613 U/L (73-393); POTASSIUM SERUM 3.7 MEQ/L (3.5-5.1); SODIUM LEVEL 139 MEQ/L (136-145); TOTAL PROTEIN 6.1 GM/DL (6.4-8.2)
[2020-12-17] MEDS: GASTROGRAFIN SOLUTION 30ML PO SCH ×2 (06:44→07:16)
[2020-12-17 06:45] LABS: ATYPICAL LYMPH 3 % (0-5); LYMPHOCYTES 18 % (16-44); MONOCYTES 8 % (0-5); NEUTROPHILS 71 % (28-66)
[2020-12-17 06:46] LABS: PLATELET ESTIMATE NORMAL (NORMAL)
[2020-12-17 06:47] LABS: ANISOCYTOSIS 1+; POIKILOCYTOSIS 1+; TARGET CELLS 1+
[2020-12-17 06:48] LABS: POLYCHROMASIA 1+
[2020-12-17] MEDS: ASPIRIN 81 MG CHEW TABLET PO SCH (07:59)
[2020-12-17] MEDS: MULTIVITAMINS/MINERALS THERAP 1 TAB PO SCH (07:59)
[2020-12-17] MEDS: FOLIC ACID 1 MG TAB PO SCH (07:59)
[2020-12-17 08:00] VITALS: BP 128/87
[2020-12-17] MEDS: THIAMINE 100 MG TAB PO SCH (08:00)
[2020-12-17] MEDS ORDERED: ISOVUE-370 76% 100ML VIAL As Ordered ONE (08:13)
[2020-12-17] MEDS: FERROUS GLUCONATE 324 MG TAB PO SCH ×2 (08:52→20:30)
[2020-12-17] MEDS: DOCUSATE SODIUM 100MG CAPSULE PO SCH ×2 (08:52→20:30)
--- NOTE | 2020-12-17 09:30 | REP ---
INDICATION: Reevaluate posterior stomach lesion, monitor pancreatitis. COMPARISON: None. TECHNIQUE: Imaging protocol: Computed tomography of the abdomen and pelvis with contrast. Contiguous axial projection images were obtained through the abdomen and pelvis. 2D sagittal and coronal reconstructions were performed. Radiation optimization: All CT scans at this facility use at least one of these dose optimization techniques: automated exposure control; mA and/or kV adjustment per patient size (includes targeted exams where dose is matched to clinical indication); or iterative reconstruction. Contrast material: ISOVUE 370; Contrast volume: 100 ml; Contrast route: INTRAVENOUS (IV). Oral contrast was also administered. FINDINGS: Heart and lung bases: There are bilateral pleural effusions, left greater than right, with atelectasis of the adjacent portion of the lower lobes of both lungs, not significantly changed. The tip of a PICC line is now noted at the SVC/RA junction. There is calcific vascular disease of the thoracic aorta and coronary arteries. Liver: Moderate fatty infiltration. There is an ill-defined low-density area in the posterior segment of the right hepatic lobe adjacent to the gallbladder fossa consistent with hepatic edema. Not significantly changed. Gallbladder: There is pericholecystic fluid and thickening of the gallbladder wall, which may be due to the adjacent peripancreatic edema. Spleen: Normal. Pancreas: There is predominantly homogeneous enhancement of the pancreas although there is some heterogeneity of enhancement in the head and uncinate process. This does not appear significantly changed when compared with the prior exam. There is increased attenuation of the peripancreatic fat. There is peripancreatic fluid without pseudocyst formation. This appears stable. The common bile duct measures 5 mm in diameter. The pancreatic duct is not dilated. Adrenal glands: There is a 15 mm in diameter left adrenal nodule, not clearly an adenoma. Kidneys/bladder: The kidneys enhance normally. Urinary bladder has a normal unenhanced appearance. Pelvic structures: The prostate gland measures 4.0 cm in transverse dimension and contains coarse calcifications. The seminal vesicles appear normal. There is no free fluid the pelvis. There is no pelvic or inguinal lymphadenopathy. GI tract: The degree of distension of the gastrointestinal tract has decreased since the prior exam. There remains mild dilatation of multiple small bowel loops, and the transverse colon and thickening of the wall the stomach and duodenum due to adjacent peripancreatic inflammation. The appendix is not identified. Abdominal wall and mesentery: There are no abdominal wall defects. There is no mesenteric or retroperitoneal lymphadenopathy. There is an intramuscular lipoma between the gluteus medius and gluteus yandel, on the left, measuring 9.5 x 8.8 x 2.9 cm. Abdominal aorta and vascular structures: There is calcific vascular disease of the abdominal aorta. The inferior vena cava and portal venous system is normal. There is no evidence of splenic vein thrombosis. Bony structures: There is minimal multilevel degenerative disc disease of the lower thoracic and lumbar spine with mild dextroscoliosis. The SI joints are normal. There is mild arthritis of both hips. IMPRESSION: 1. Findings consistent with acute pancreatitis. There is mildly improved enhancement of the head and uncinate process of the pancreas. 2. Peripancreatic inflammation and fluid without pseudocyst formation. 3. Thickening of the gallbladder wall most likely due to adjacent inflammation. 4. Fatty liver infiltration. 5. There is a stable low-density area in the posterior segment of the right hepatic lobe, may be edema. 6. Left adrenal nodule not clearly an adenoma. 7. There is been interval improvement in the degree of dilatation of the GI tract consistent with improving ileus. 8. There has been interval placement of a right PICC line and interval removal of the Krishnan catheter. 9. Bilateral pleural effusions with adjacent compressive atelectasis, not significantly changed. <Electronically signed by Steve Enrique > 12/17/20 0915
[2020-12-17 12:00] VITALS: BP 134/78
[2020-12-17 16:00] VITALS: BP 152/83
--- NOTE | 2020-12-17 16:22 | IPNPDOC ---
Subjective Date Seen The patient was seen on 12/17/20. Subjective Chief Complaint/HPI has had a good day today. Nursing reports she's been eating most of his food. He's had several bowel movements. None of this causes abdominal pain or discomfort. He has no acute complaints. General: Reports: Normal Appetite Pulmonary: Denies: Dyspnea, Cough Cardiovascular: Denies: Chest Pain, Palpitations Genitourinary: Denies: Dysuria, Hematuria Psych: Reports: Mood Normal Objective Physical Examination General Exam: Positive: Alert, Cooperative (sitting on the side of the bed tod ay when I entered the room), No Acute Distress Eye Exam: Positive: Conjunctiva & lids normal; Negative: Sclera icteric ENT Exam: Positive: Atraumatic, Mucous membr. moist/pink Neck Exam: Positive: Supple; Negative: Lymphadenopathy Chest Exam: Positive: Clear to auscultation, Normal air movement Heart Exam: Positive: Rate Normal, Regular Rhythm, Normal S1, Normal S2 Telemetry: Positive: No significant arrhythmia Abdomen Exam: Positive: Normal bowel sounds, Soft, Other (His abdomen is almost back down to flat today); Negative: Tenderness Extremity Exam: Positive: Normal pulses; Negative: Edema Skin Exam: Positive: Nl turgor and temperature; Negative: Rash Neuro Exam: Positive: Normal Speech, Normal Tone Psych Exam: Positive: Mental status NL, Mood NL, Memory Intact, Oriented x 3 Assessment /Plan Assessment # Acute alcoholic pancreatitis - lipase is heading down again. -The repeat CT basically shows some interval improvements. Notably the hyperdense object in the posterior wall of the stomach was not found again. I shared this news with him. # Moderate to severe protein calorie malnutrition -His albumin is starting to improve as he is able to get some nutrition in. It is not great yet, but is heading in the right direction. #Anemia -His hemoglobin is starting to drift down again. I think most of this might be physiologic shifts but it is difficult to tell. We'll need to continue to [facility]. # Chronic alcoholism. -He appears to be in the preparation stage of change -He states that he is committed to not starting drinking again. He does not want to get this sick again. -He would like to consider some medication to help with his cravings. I ordered Campral to start tomorrow. -We discussed the importance of some sort of outpatient counseling or accountability (like AA) once he is discharged. Dvt: lovenox Plan/VTE VTE Prophylaxis Ordered?: Yes VS, I&O, 24H, Fishbone Vital Signs/I&O Vital Signs Date Time Temp Pulse Resp B/P (MAP) Pulse Ox O2 Delivery O2 Flow Rate FiO2 12/17/20 12:00 96.4 78 18 134/78 (96) 99 Room Air I&O- Last 24 Hours up to 6 AM 12/17/20 06:00 Intake Total 1220 ml Output Total 1475 ml Balance -255 ml Laboratory Data 24H LABS Laboratory Tests 2 12/17/20 06:03: Neutrophils (%) (Auto) , Nucleated Red Blood Cells % (auto) 0.4H, Neutrophils 71H, Lymphocytes (Manual) 18, Monocytes (Manual) 8H, Atypical Lymphocytes 3, Polychromasia 1+, Poikilocytosis 1+, Anisocytosis 1+, Target Cells 1+, Platelet Estimate NORMAL, Anion Gap 4L, Glomerular Filtration Rate > 60.0, Calcium Level 7.9L, Total Bilirubin 0.3, Aspartate Amino Transf (AST/SGOT) 58H, Alanine Aminotransferase (ALT/SGPT) 41, Alkaline Phosphatase 107, C-Reactive Protein, Quantitative 8.61H, Total Protein 6.1#L, Albumin 1.8L, Albumin/Globulin Ratio 0.4, Lipase 613H CBC/BMP Laboratory Tests 12/17/20 06:03 Microbiology Microbiology 12/12/20 Blood Culture - Final, Complete NO GROWTH AFTER 5 DAYS 12/12/20 Blood Culture - Final, Complete NO GROWTH AFTER 5 DAYS Edgar Sheldon MD Dec 17, 2020 16:22
[2020-12-17 20:00] VITALS: BP 141/90
[2020-12-17] MEDS: ENOXAPARIN 40MG/0.4ML SYRINGE (J1650 PER 10MG) SC SCH (20:30)
[2020-12-18 04:00] VITALS: BP 128/84
[2020-12-18] MEDS: KCL 20MEQ in NS 1000ML 1,000 ML IV SCH ×3 (04:17→16:50)
[2020-12-18] MEDS: SODIUM CHLORIDE 0.9% INJ 10 ML SYR IV SCH ×2 (06:00→18:40)
[2020-12-18] MEDS: OXAZEPAM 10 MG CAP PO SCH ×3 (06:41→21:46)
[2020-12-18 08:00] VITALS: BP 134/71
[2020-12-18 08:33] LABS: BASO % 0.3 % (0.0-1.0); EOS % 0.3 % (0.0-3.0); HEMATOCRIT 24.5 % (42.0-52.0); HEMOGLOBIN 8.7 g/dl (13.5-17.5); LYMPH # 1.3 10^3/uL (1.5-5.0); LYMPH % 12.3 % (24.0-44.0); MEAN CORPUSCULAR HEMOGLOBIN 30.7 pg (27.0-33.0); MEAN CORPUSCULAR HGB CONC 35.5 g/dl (32.0-36.5); MEAN CORPUSCULAR VOLUME 86.6 fl (80.0-96.0); MONO # 1.1 10^3/uL (0.0-0.8); MONO % 10.5 % (2.0-8.0); NEUTROPHILS # 7.8 10^3/uL (1.5-8.5); PLATELET COUNT, AUTOMATED 341 10^3/uL (150-450); RED BLOOD COUNT 2.83 10^6/uL (4.30-6.10); WHITE BLOOD COUNT 10.6 10^3/uL (4.0-10.0)
[2020-12-18] MEDS: ACAMPROSATE CALCIUM 333 MG TABLET (CAMPRAL) PO SCH ×3 (09:00→21:46)
[2020-12-18] MEDS: DOCUSATE SODIUM 100MG CAPSULE PO SCH ×3 (09:00→21:46)
[2020-12-18 09:12] LABS: ALBUMIN 1.8 GM/DL (3.2-5.2); ALT/SGPT 41 U/L (12-78); BILIRUBIN,TOTAL 0.2 MG/DL (0.2-1.0); BLOOD UREA NITROGEN 3 MG/DL (7-18); CARBON DIOXIDE LEVEL 26 MEQ/L (21-32); CHLORIDE LEVEL 107 MEQ/L (98-107); CREATININE FOR GFR 0.42 MG/DL (0.70-1.30); GLOMERULAR FILTRATION RATE > 60.0 (>49); GLUCOSE, FASTING 64 MG/DL (70-100); LIPASE 815 U/L (73-393); POTASSIUM SERUM 3.9 MEQ/L (3.5-5.1); SODIUM LEVEL 140 MEQ/L (136-145); TOTAL PROTEIN 5.5 GM/DL (6.4-8.2)
[2020-12-18] MEDS: FOLIC ACID 1 MG TAB PO SCH (09:41)
[2020-12-18] MEDS: ASPIRIN 81 MG CHEW TABLET PO SCH (09:41)
[2020-12-18] MEDS: MULTIVITAMINS/MINERALS THERAP 1 TAB PO SCH (09:41)
[2020-12-18] MEDS: FERROUS GLUCONATE 324 MG TAB PO SCH ×2 (09:42→21:46)
[2020-12-18] MEDS: THIAMINE 100 MG TAB PO SCH (09:42)
[2020-12-18 14:55] VITALS: BP 142/70
[2020-12-18 18:00] VITALS: BP 122/70
[2020-12-18] MEDS: ENOXAPARIN 40MG/0.4ML SYRINGE (J1650 PER 10MG) SC SCH (21:47)
[2020-12-18 22:00] VITALS: BP 124/78
--- NOTE | 2020-12-18 23:26 | IPNPDOC ---
Subjective Date Seen The patient was seen on 12/18/20. Subjective Chief Complaint/HPI Mr. Stern reports that he feels almost normal today. He is not having any pain when he eats or moves around his room. However, he has started to notice how weak he is as well. He states, "I haven't been up and walking around very much lately." General: Reports: Normal Appetite Pulmonary: Denies: Dyspnea, Cough Cardiovascular: Denies: Chest Pain, Palpitations Gastrointestinal: Reports: Abdominal Pain (mild discomfort on moderate palpation over the left upper quadrant); Denies: Nausea, Vomiting Genitourinary: Denies: Dysuria Psych: Reports: Mood Normal Objective Physical Examination General Exam: Positive: Alert, Cooperative (laying in his hospital bed watching TV when I entered the room.), No Acute Distress Eye Exam: Positive: Conjunctiva & lids normal; Negative: Sclera icteric ENT Exam: Positive: Atraumatic, Mucous membr. moist/pink Neck Exam: Positive: Supple; Negative: Lymphadenopathy Chest Exam: Positive: Clear to auscultation, Normal air movement Heart Exam: Positive: Rate Normal, Regular Rhythm, Normal S1, Normal S2 Telemetry: Positive: No significant arrhythmia Abdomen Exam: Positive: Normal bowel sounds, Soft; Negative: Tenderness Extremity Exam: Positive: Normal pulses; Negative: Edema Skin Exam: Positive: Nl turgor and temperature; Negative: Rash Neuro Exam: Positive: Normal Speech, Normal Tone Psych Exam: Positive: Mental status NL, Mood NL, Memory Intact, Oriented x 3 Assessment /Plan Assessment # Acute alcoholic pancreatitis - lipase bumped a little again today. The CRP continues to steadily trend down. He is not having any symptoms # Moderate to severe protein calorie malnutrition -His albumin is starting to improve as he is able to get some nutrition in. It is not great yet, but is heading in the right direction. #Anemia -His hemoglobin is starting to drift down again. If this trend continues we may even need to consider a transfusion. We'll need to continue to monitor. # Chronic alcoholism. -He appears to be in the preparation stage of change -He states that he is committed to not starting drinking again. He does not want to get this sick again. -He would like to consider some medication to help with his cravings. He can't swallow the Campral yet so I will try naltrexone. -We discussed the importance of some sort of outpatient counseling or accountability (like AA) once he is discharged. Dvt: lovenox Plan/VTE VTE Prophylaxis Ordered?: Yes VS, I&O, 24H, Fishbone Vital Signs/I&O Vital Signs Date Time Temp Pulse Resp B/P (MAP) Pulse Ox O2 Delivery O2 Flow Rate FiO2 12/18/20 18:00 97.3 106 18 122/70 (87) 97 Room Air I&O- Last 24 Hours up to 6 AM 12/18/20 05:59 Intake Total 400 ml Output Total 775 ml Balance -375 ml Laboratory Data 24H LABS Laboratory Tests 2 12/18/20 08:05: Immature Granulocyte % (Auto) 2.6, Neutrophils (%) (Auto) 74.0H, Lymphocytes (%) (Auto) 12.3L, Monocytes (%) (Auto) 10.5H, Eosinophils (%) (Auto) 0.3, Basophils (%) (Auto) 0.3, Neutrophils # (Auto) 7.8, Lymphocytes # (Auto) 1.3L, Monocytes # (Auto) 1.1H, Eosinophils # (Auto) 0.0, Basophils # (Auto) 0.0, Nucleated Red Blood Cells % (auto) 0.3H, Anion Gap 7L, Glomerular Filtration Rate > 60.0, Calcium Level 8.0L, Total Bilirubin 0.2, Aspartate Amino Transf (AST/SGOT) 45H, Alanine Aminotransferase (ALT/SGPT) 41, Alkaline Phosphatase 108, C-Reactive Protein, Quantitative 7.30H, Total Protein 5.5L, Albumin 1.8L, Albumin/Globulin Ratio 0.5, Lipase 815H CBC/BMP Laboratory Tests 12/18/20 08:05 Microbiology Microbiology 12/12/20 Blood Culture - Final, Complete NO GROWTH AFTER 5 DAYS 12/12/20 Blood Culture - Final, Complete NO GROWTH AFTER 5 DAYS Edgar Sheldon MD Dec 18, 2020 23:26
[2020-12-19 02:00] VITALS: BP 141/83
[2020-12-19] MEDS: KCL 20MEQ in NS 1000ML 1,000 ML IV SCH (02:14)
[2020-12-19] MEDS: OXAZEPAM 10 MG CAP PO SCH ×3 (05:09→21:54)
[2020-12-19] MEDS: SODIUM CHLORIDE 0.9% INJ 10 ML SYR IV SCH ×2 (05:09→17:06)
[2020-12-19 06:00] VITALS: BP 144/94
[2020-12-19 06:43] LABS: BASO % 0.4 % (0.0-1.0); EOS % 0.5 % (0.0-3.0); HEMATOCRIT 24.5 % (42.0-52.0); HEMOGLOBIN 8.7 g/dl (13.5-17.5); LYMPH # 1.3 10^3/uL (1.5-5.0); LYMPH % 15.6 % (24.0-44.0); MEAN CORPUSCULAR HEMOGLOBIN 30.2 pg (27.0-33.0); MEAN CORPUSCULAR HGB CONC 35.5 g/dl (32.0-36.5); MEAN CORPUSCULAR VOLUME 85.1 fl (80.0-96.0); MONO % 12.1 % (2.0-8.0); NEUTROPHILS # 5.6 10^3/uL (1.5-8.5); NEUTROPHILS % 68.8 % (36.0-66.0); PLATELET COUNT, AUTOMATED 332 10^3/uL (150-450); RED BLOOD COUNT 2.88 10^6/uL (4.30-6.10); WHITE BLOOD COUNT 8.1 10^3/uL (4.0-10.0)
[2020-12-19 07:11] LABS: ALBUMIN 1.8 GM/DL (3.2-5.2); BLOOD UREA NITROGEN 3 MG/DL (7-18); C REACTIVE PROTEIN QUANTITATIV 5.45 MG/DL (0.00-0.30); CALCIUM LEVEL 8.2 MG/DL (8.8-10.2); CARBON DIOXIDE LEVEL 27 MEQ/L (21-32); CHLORIDE LEVEL 106 MEQ/L (98-107); CREATININE FOR GFR 0.38 MG/DL (0.70-1.30); GLOMERULAR FILTRATION RATE > 60.0 (>49); GLUCOSE, FASTING 72 MG/DL (70-100); LIPASE 910 U/L (73-393); PHOSPHORUS LEVEL 2.7 MG/DL (2.5-4.9); POTASSIUM SERUM 4.3 MEQ/L (3.5-5.1); SODIUM LEVEL 139 MEQ/L (136-145)
[2020-12-19] MEDS: FOLIC ACID 1 MG TAB PO SCH (08:56)
[2020-12-19] MEDS: MULTIVITAMINS/MINERALS THERAP 1 TAB PO SCH (08:56)
[2020-12-19] MEDS: THIAMINE 100 MG TAB PO SCH (08:56)
[2020-12-19] MEDS: ACAMPROSATE CALCIUM 333 MG TABLET (CAMPRAL) PO SCH ×2 (08:56→21:54)
[2020-12-19] MEDS: DOCUSATE SODIUM 100MG CAPSULE PO SCH ×2 (08:56→21:54)
[2020-12-19] MEDS: ASPIRIN 81 MG CHEW TABLET PO SCH (08:56)
[2020-12-19] MEDS: NALTREXONE 50 MG TAB PO SCH (08:56)
[2020-12-19] MEDS: FERROUS GLUCONATE 324 MG TAB PO SCH ×2 (08:56→21:54)
[2020-12-19] MEDS ORDERED: LORazepam 2 MG TAB PO PRN (12:35)
[2020-12-19 14:00] VITALS: BP 123/96
--- NOTE | 2020-12-19 14:19 | IPN ---
PROGRESS NOTE DATE: 12/19/2020 SUBJECTIVE: The patient continues to have tremors at the bedside and persistent aspiration, currently on pureed diet and complains of dysphagia. No fever or chills overnight. No nausea, vomiting, abdominal pain or diarrhea. OBJECTIVE: VITAL SIGNS: Temperature is 97, pulse is 92, respiratory rate is 18, blood pressure is 144/94, 96% on room air. GENERAL: Patient is awake, alert and oriented to person, place and time, answering questions appropriately with tremors of bilateral upper extremities. HEENT: Moist mucous membranes. NECK: No JVD. No thyromegaly. LUNGS: Clear to auscultation. No wheezing, rales or rhonchi. HEART: S1 and S2, sinus rhythm. ABDOMEN: Soft, nontender and nondistended. Positive bowel sounds. EXTREMITIES: No cyanosis, clubbing or pitting edema. Laboratory data, imaging studies, and microbiology have been reviewed. ASSESSMENT AND PLAN: A 65-year-old male admitted on 12/08/2020 with complaints of left sided weakness status post fall, to rule out TIA versus CVA with history of prior smoking, EKG showed prolonged QT, patient had a history of chronic alcoholism with severe protein calorie malnutrition. An echocardiogram showed LV diastolic dysfunction. Ejection fraction was 75%. MRI of the brain on 12/08/2020 showed mild age related changes without acute abnormality. Liver ultrasound showed distended gallbladder with hepatic steatosis but no acute abnormalities. CT of the abdomen and pelvis on 12/09 showed ileus with gastritis enteritis. There is a possibility of mesenteric edema and ascites with small left pleural effusion, left adrenal mass, non-emergent adrenal CT recommended. Repeat CT showed acute pancreatitis with ileus with increasing lateral pleural effusions left greater than right with no pancreatic abscess or hemorrhagic pancreatitis. Repeat CT shows interval improvement in dilation of the GI tract with improving ileus. ACTIVE ISSUES: 1. Acute alcoholic pancreatitis, currently tolerating diet without nausea or vomiting with improved findings on CT with no necrosis or pancreatic pseudocysts. 2. Alcohol abuse, on CIWA protocol, Serax, multivitamin, thiamine and folate. 3. Bilateral pleural effusions secondary to fluid overload from IV fluids given for pancreatitis with some atelectasis. Incentive spirometry to be given. 4. Left adrenal nodule, dedicated adrenal CT for further evaluation. 5. Debility with severe protein calorie malnutrition, BMI of 16.7 and cachexia. Ensure. Nutrition consult. 6. Disposition: Patient may need subacute rehab placement. 7. Dysphagia. On pureed diet. MTDD
[2020-12-19 17:00] VITALS: BP 138/82
[2020-12-19 18:00] VITALS: BP 138/82
[2020-12-19] MEDS: ENOXAPARIN 40MG/0.4ML SYRINGE (J1650 PER 10MG) SC SCH (21:54)
[2020-12-19 22:00] VITALS: BP 127/75
[2020-12-20] VITALS (7 sets, daily range): BP systolic 92–130; BP diastolic 60–88
[2020-12-20] MEDS: OXAZEPAM 10 MG CAP PO SCH ×3 (05:20→20:51)
[2020-12-20] MEDS: SODIUM CHLORIDE 0.9% INJ 10 ML SYR IV SCH ×2 (05:20→17:47)
[2020-12-20] MEDS ORDERED: LORazepam 1 MG TAB PO ONE (08:30)
[2020-12-20] MEDS: NALTREXONE 50 MG TAB PO SCH (08:59)
[2020-12-20] MEDS: ASPIRIN 81 MG CHEW TABLET PO SCH (08:59)
[2020-12-20] MEDS: MULTIVITAMINS/MINERALS THERAP 1 TAB PO SCH (08:59)
[2020-12-20] MEDS: ACAMPROSATE CALCIUM 333 MG TABLET (CAMPRAL) PO SCH ×2 (08:59→20:51)
[2020-12-20] MEDS: THIAMINE 100 MG TAB PO SCH (08:59)
[2020-12-20] MEDS: DOCUSATE SODIUM 100MG CAPSULE PO SCH ×2 (08:59→20:51)
[2020-12-20] MEDS: FERROUS GLUCONATE 324 MG TAB PO SCH ×2 (09:00→20:51)
[2020-12-20] MEDS: FOLIC ACID 1 MG TAB PO SCH (09:00)
--- NOTE | 2020-12-20 10:42 | IPNPDOC ---
Date Seen The patient was seen on 12/20/20. Progress Note SUBJECTIVE: Patient denies nausea vomiting abdominal pain but complains of persistent tremors bilateral upper extremities without fever chills. He remains with significant debility and able to ambulate and feed himself. He is requiring 2 person maximum assistance . OBJECTIVE: VITAL SIGNS: See below GENERAL: Anicteric no jaundice no pallor cachectic with bitemporal wasting No respiratory distress or use of respiratory accessory muscles patient is awake, alert and oriented to person, place and time, answering questions appropriately with tremors of bilateral upper extremities. HEENT: Moist mucous membranes. No JVD thyromegaly cervical lymphadenopathy LUNGS: Diminished no wheezing, rales or rhonchi. HEART: S1 and S2, sinus rhythm. Not tachycardic ABDOMEN: Soft, nontender and nondistended. Positive bowel sounds. EXTREMITIES: No cyanosis, clubbing or pitting edema. Muscle atrophy Laboratory data, imaging studies, and microbiology have been reviewed. ASSESSMENT AND PLAN: A 65-year-old male admitted on 12/08/2020 with complaints of left sided weakness status post fall, to rule out TIA versus CVA with history of prior smoking, EKG showed prolonged QT, patient had a history of chronic alcoholism with severe protein calorie malnutrition. An echocardiogram showed LV diastolic dysfunction. Ejection fraction was 75%. MRI of the brain on 12/08/2020 showed mild age related changes without acute abnormality. Liver ultrasound showed distended gallbladder with hepatic steatosis but no acute abnormalities. CT of the abdomen and pelvis on 12/09 showed ileus with gastritis enteritis. There is a possibility of mesenteric edema and ascites with small left pleural effusion, left adrenal mass, non-emergent adrenal CT recommended. Repeat CT showed acute pancreatitis with ileus with increasing lateral pleural effusions left greater than right with no pancreatic abscess or hemorrhagic pancreatitis. Repeat CT shows interval improvement in dilation of the GI tract with improving ileus. Acute alcoholic pancreatitis Tolerating his pured diet without abdominal pain nausea or vomiting Repeat CT abdomen pelvis shows no pseudocyst or pancreatic necrosis Alcohol withdrawal/alcohol abuse on CIWA protocol, Serax, multivitamin, thiamine and folate. Bilateral pleural effusions secondary to fluid overload from IV fluids IV fluids discontinued Left adrenal nodule dedicated adrenal CT for further evaluation. Debility Requires two-person assistance severe protein calorie malnutrition BMI of 16.7 Banquet [employer] consulted and recommends Ensure cachexia with muscle wasting and atrophy. On ensure. Nutrition consulted Dysphagia/aspiration risk. Requires assistance with his meals on pureed diet. Aspiration precautions Head of bed elevation greater than 30 degrees at all times Anemia No overt GI bleed PPI No acute indication for RBC transfusion Disposition subacute rehab placement VS, I&O, 24H, Fishbone Vital Signs/I&O Vital Signs Date Time Temp Pulse Resp B/P (MAP) Pulse Ox O2 Delivery O2 Flow Rate FiO2 12/20/20 06:00 97.2 94 16 128/88 (101) 98 Room Air I&O- Last 24 Hours up to 6 AM 12/20/20 06:00 Intake Total 1260 ml Output Total 450 ml Balance 810 ml Laboratory Data 24H LABS Laboratory Tests 2 12/20/20 06:22: C-Reactive Protein, Quantitative 3.28H Microbiology Microbiology 12/12/20 Blood Culture - Final, Complete NO GROWTH AFTER 5 DAYS 12/12/20 Blood Culture - Final, Complete NO GROWTH AFTER 5 DAYS ITA QUIROZ MD Dec 20, 2020 10:38
[2020-12-20] MEDS ORDERED: NS 1,000 ML IV ONE (13:40)
[2020-12-20] MEDS ORDERED: MIDODRINE 5 MG TAB PO ONE (15:00)
[2020-12-20] MEDS: ENOXAPARIN 40MG/0.4ML SYRINGE (J1650 PER 10MG) SC SCH (20:51)
[2020-12-21 02:00] VITALS: BP 100/80
[2020-12-21] MEDS: OXAZEPAM 10 MG CAP PO SCH ×3 (05:17→17:38)
[2020-12-21] MEDS: SODIUM CHLORIDE 0.9% INJ 10 ML SYR IV SCH ×2 (05:17→15:51)
[2020-12-21 06:00] VITALS: BP 100/80
[2020-12-21 06:11] LABS: BASO # 0.1 10^3/uL (0.0-0.2); BASO % 0.7 % (0.0-1.0); EOS # 0.1 10^3/uL (0.0-0.5); EOS % 0.8 % (0.0-3.0); HEMATOCRIT 24.9 % (42.0-52.0); HEMOGLOBIN 8.8 g/dl (13.5-17.5); LYMPH # 1.4 10^3/uL (1.5-5.0); LYMPH % 19.1 % (24.0-44.0); MEAN CORPUSCULAR HEMOGLOBIN 30.3 pg (27.0-33.0); MEAN CORPUSCULAR HGB CONC 35.3 g/dl (32.0-36.5); MEAN CORPUSCULAR VOLUME 85.9 fl (80.0-96.0); MONO % 13.7 % (2.0-8.0); NEUTROPHILS # 4.6 10^3/uL (1.5-8.5); NEUTROPHILS % 64.4 % (36.0-66.0); PLATELET COUNT, AUTOMATED 339 10^3/uL (150-450); WHITE BLOOD COUNT 7.1 10^3/uL (4.0-10.0)
[2020-12-21 06:31] LABS: ALBUMIN 1.9 GM/DL (3.2-5.2); ALT/SGPT 28 U/L (12-78); BILIRUBIN,TOTAL 0.2 MG/DL (0.2-1.0); BLOOD UREA NITROGEN 5 MG/DL (7-18); C REACTIVE PROTEIN QUANTITATIV 2.62 MG/DL (0.00-0.30); CALCIUM LEVEL 8.6 MG/DL (8.8-10.2); CARBON DIOXIDE LEVEL 29 MEQ/L (21-32); CHLORIDE LEVEL 103 MEQ/L (98-107); CREATININE FOR GFR 0.54 MG/DL (0.70-1.30); GLOMERULAR FILTRATION RATE > 60.0 (>49); GLUCOSE, FASTING 72 MG/DL (70-100); POTASSIUM SERUM 3.9 MEQ/L (3.5-5.1); SODIUM LEVEL 139 MEQ/L (136-145); TOTAL PROTEIN 5.8 GM/DL (6.4-8.2)
[2020-12-21] MEDS: ACAMPROSATE CALCIUM 333 MG TABLET (CAMPRAL) PO SCH ×2 (09:32→20:27)
[2020-12-21] MEDS: MULTIVITAMINS/MINERALS THERAP 1 TAB PO SCH (09:32)
[2020-12-21] MEDS: ASPIRIN 81 MG CHEW TABLET PO SCH (09:32)
[2020-12-21] MEDS: DOCUSATE SODIUM 100MG CAPSULE PO SCH ×2 (09:32→20:27)
[2020-12-21] MEDS: NALTREXONE 50 MG TAB PO SCH (09:33)
[2020-12-21] MEDS: FERROUS GLUCONATE 324 MG TAB PO SCH ×2 (09:33→20:27)
[2020-12-21] MEDS: FOLIC ACID 1 MG TAB PO SCH (09:33)
[2020-12-21] MEDS: THIAMINE 100 MG TAB PO SCH (09:33)
[2020-12-21 10:37] VITALS: BP 96/54
[2020-12-21 11:17] VITALS: BP 96/54
[2020-12-21] MEDS: MIDODRINE 5 MG TAB PO SCH ×2 (11:24→15:50)
[2020-12-21 14:30] VITALS: BP 104/58
[2020-12-21 17:38] VITALS: BP 110/60
[2020-12-21] MEDS: ENOXAPARIN 40MG/0.4ML SYRINGE (J1650 PER 10MG) SC SCH (20:27)
[2020-12-22] MEDS: OXAZEPAM 10 MG CAP PO SCH ×4 (01:06→17:32)
[2020-12-22 01:07] VITALS: BP 119/71
[2020-12-22 06:00] VITALS: BP 113/77
[2020-12-22] MEDS: SODIUM CHLORIDE 0.9% INJ 10 ML SYR IV SCH ×2 (06:33→17:33)
[2020-12-22] MEDS: MIDODRINE 5 MG TAB PO SCH ×4 (08:00→16:00)
[2020-12-22] MEDS: ACAMPROSATE CALCIUM 333 MG TABLET (CAMPRAL) PO SCH ×2 (09:04→20:28)
[2020-12-22] MEDS: THIAMINE 100 MG TAB PO SCH (09:05)
[2020-12-22] MEDS: DOCUSATE SODIUM 100MG CAPSULE PO SCH ×2 (09:05→20:28)
[2020-12-22] MEDS: ASPIRIN 81 MG CHEW TABLET PO SCH (09:05)
[2020-12-22] MEDS: FERROUS GLUCONATE 324 MG TAB PO SCH ×2 (09:05→20:27)
[2020-12-22] MEDS: FOLIC ACID 1 MG TAB PO SCH (09:05)
[2020-12-22] MEDS: MULTIVITAMINS/MINERALS THERAP 1 TAB PO SCH (09:05)
[2020-12-22] MEDS: NALTREXONE 50 MG TAB PO SCH (09:06)
[2020-12-22 09:10] VITALS: BP 108/72
[2020-12-22 12:18] VITALS: BP 112/78
[2020-12-22 16:29] VITALS: BP 110/68
[2020-12-22] MEDS: ENOXAPARIN 40MG/0.4ML SYRINGE (J1650 PER 10MG) SC SCH (20:28)
[2020-12-22] MEDS ORDERED: CALCIUM CARBONATE 500 MG CHEW U/D PO PRN (21:05)
[2020-12-23] MEDS: OXAZEPAM 10 MG CAP PO SCH ×4 (00:51→18:26)
[2020-12-23 06:00] VITALS: BP_SYST 112
[2020-12-23] MEDS: SODIUM CHLORIDE 0.9% INJ 10 ML SYR IV SCH ×2 (06:09→18:26)
[2020-12-23 08:05] VITALS: BP 106/58
[2020-12-23] MEDS: MIDODRINE 5 MG TAB PO SCH ×3 (08:07→16:02)
[2020-12-23] MEDS: FOLIC ACID 1 MG TAB PO SCH (08:08)
[2020-12-23] MEDS: NALTREXONE 50 MG TAB PO SCH (08:08)
[2020-12-23] MEDS: DOCUSATE SODIUM 100MG CAPSULE PO SCH ×2 (08:08→20:15)
[2020-12-23] MEDS: MULTIVITAMINS/MINERALS THERAP 1 TAB PO SCH (08:08)
[2020-12-23] MEDS: FERROUS GLUCONATE 324 MG TAB PO SCH ×2 (08:08→20:15)
[2020-12-23] MEDS: ASPIRIN 81 MG CHEW TABLET PO SCH (08:08)
[2020-12-23] MEDS: ACAMPROSATE CALCIUM 333 MG TABLET (CAMPRAL) PO SCH ×2 (08:09→20:15)
[2020-12-23] MEDS: THIAMINE 100 MG TAB PO SCH (08:17)
[2020-12-23 11:51] VITALS: BP 120/66
[2020-12-23 15:58] VITALS: BP 120/60
[2020-12-23] MEDS: ENOXAPARIN 40MG/0.4ML SYRINGE (J1650 PER 10MG) SC SCH (20:15)
[2020-12-24] MEDS: OXAZEPAM 10 MG CAP PO SCH ×4 (00:17→17:26)
[2020-12-24] MEDS: SODIUM CHLORIDE 0.9% INJ 10 ML SYR IV SCH ×2 (05:24→17:04)
[2020-12-24 06:00] VITALS: BP 117/76
[2020-12-24 08:05] VITALS: BP 110/60
[2020-12-24] MEDS: MIDODRINE 5 MG TAB PO SCH ×3 (08:06→17:04)
[2020-12-24] MEDS: FOLIC ACID 1 MG TAB PO SCH (08:06)
[2020-12-24] MEDS: ACAMPROSATE CALCIUM 333 MG TABLET (CAMPRAL) PO SCH ×2 (08:06→20:12)
[2020-12-24] MEDS: THIAMINE 100 MG TAB PO SCH (08:06)
[2020-12-24] MEDS: NALTREXONE 50 MG TAB PO SCH (08:07)
[2020-12-24] MEDS: MULTIVITAMINS/MINERALS THERAP 1 TAB PO SCH (08:07)
[2020-12-24] MEDS: ASPIRIN 81 MG CHEW TABLET PO SCH (08:07)
[2020-12-24] MEDS: FERROUS GLUCONATE 324 MG TAB PO SCH ×2 (08:07→20:12)
[2020-12-24] MEDS: DOCUSATE SODIUM 100MG CAPSULE PO SCH ×2 (08:07→20:12)
[2020-12-24 11:49] VITALS: BP 118/62
[2020-12-24] MEDS: ENOXAPARIN 40MG/0.4ML SYRINGE (J1650 PER 10MG) SC SCH (20:12)
[2020-12-25] MEDS: OXAZEPAM 10 MG CAP PO SCH ×5 (01:06→23:34)
[2020-12-25] MEDS: SODIUM CHLORIDE 0.9% INJ 10 ML SYR IV SCH ×2 (05:12→18:06)
[2020-12-25 06:00] VITALS: BP 101/65
[2020-12-25] MEDS: MIDODRINE 5 MG TAB PO SCH ×3 (08:00→16:43)
[2020-12-25 08:26] LABS: HEMATOCRIT 29.1 % (42.0-52.0); HEMOGLOBIN 9.8 g/dl (13.5-17.5); MEAN CORPUSCULAR HEMOGLOBIN 29.9 pg (27.0-33.0); MEAN CORPUSCULAR HGB CONC 33.7 g/dl (32.0-36.5); MEAN CORPUSCULAR VOLUME 88.7 fl (80.0-96.0); PLATELET COUNT, AUTOMATED 390 10^3/uL (150-450); RED BLOOD COUNT 3.28 10^6/uL (4.30-6.10); WHITE BLOOD COUNT 7.5 10^3/uL (4.0-10.0)
[2020-12-25 08:45] LABS: BLOOD UREA NITROGEN 7 MG/DL (7-18); CALCIUM LEVEL 8.9 MG/DL (8.8-10.2); CARBON DIOXIDE LEVEL 30 MEQ/L (21-32); CHLORIDE LEVEL 102 MEQ/L (98-107); CREATININE FOR GFR 0.55 MG/DL (0.70-1.30); GLOMERULAR FILTRATION RATE > 60.0 (>49); GLUCOSE, FASTING 89 MG/DL (70-100); POTASSIUM SERUM 4.1 MEQ/L (3.5-5.1); SODIUM LEVEL 138 MEQ/L (136-145)
[2020-12-25] MEDS: NALTREXONE 50 MG TAB PO SCH (09:52)
[2020-12-25] MEDS: ACAMPROSATE CALCIUM 333 MG TABLET (CAMPRAL) PO SCH ×2 (09:52→20:40)
[2020-12-25] MEDS: THIAMINE 100 MG TAB PO SCH (09:52)
[2020-12-25] MEDS: MULTIVITAMINS/MINERALS THERAP 1 TAB PO SCH (09:52)
[2020-12-25] MEDS: ASPIRIN 81 MG CHEW TABLET PO SCH (09:52)
[2020-12-25] MEDS: FOLIC ACID 1 MG TAB PO SCH (09:52)
[2020-12-25] MEDS: FERROUS GLUCONATE 324 MG TAB PO SCH ×2 (09:53→20:40)
[2020-12-25] MEDS: DOCUSATE SODIUM 100MG CAPSULE PO SCH ×2 (09:53→20:40)
[2020-12-25] MEDS: ENOXAPARIN 40MG/0.4ML SYRINGE (J1650 PER 10MG) SC SCH (20:40)
[2020-12-26 05:23] VITALS: BP 108/68
[2020-12-26] MEDS: OXAZEPAM 10 MG CAP PO SCH ×4 (05:26→23:39)
[2020-12-26] MEDS: SODIUM CHLORIDE 0.9% INJ 10 ML SYR IV SCH ×2 (05:27→18:21)
[2020-12-26] MEDS: FOLIC ACID 1 MG TAB PO SCH (09:06)
[2020-12-26] MEDS: FERROUS GLUCONATE 324 MG TAB PO SCH ×2 (09:06→21:15)
[2020-12-26] MEDS: MIDODRINE 5 MG TAB PO SCH ×3 (09:06→18:21)
[2020-12-26] MEDS: MULTIVITAMINS/MINERALS THERAP 1 TAB PO SCH (09:06)
[2020-12-26] MEDS: ASPIRIN 81 MG CHEW TABLET PO SCH (09:06)
[2020-12-26] MEDS: THIAMINE 100 MG TAB PO SCH (09:07)
[2020-12-26] MEDS: ACAMPROSATE CALCIUM 333 MG TABLET (CAMPRAL) PO SCH ×2 (09:07→21:15)
[2020-12-26] MEDS: NALTREXONE 50 MG TAB PO SCH (09:07)
[2020-12-26 09:08] VITALS: BP 113/73
[2020-12-26] MEDS: DOCUSATE SODIUM 100MG CAPSULE PO SCH ×2 (09:08→21:15)
[2020-12-26 12:02] VITALS: BP 107/74
[2020-12-26] MEDS: ENOXAPARIN 40MG/0.4ML SYRINGE (J1650 PER 10MG) SC SCH (21:15)
[2020-12-27 06:00] VITALS: BP 122/78
[2020-12-27] MEDS: SODIUM CHLORIDE 0.9% INJ 10 ML SYR IV SCH (06:05)
[2020-12-27] MEDS: OXAZEPAM 10 MG CAP PO SCH ×3 (06:05→20:50)
[2020-12-27] MEDS: MIDODRINE 5 MG TAB PO SCH ×3 (08:00→16:00)
[2020-12-27] MEDS: FOLIC ACID 1 MG TAB PO SCH (09:09)
[2020-12-27] MEDS: FERROUS GLUCONATE 324 MG TAB PO SCH ×2 (09:09→20:50)
[2020-12-27] MEDS: ACAMPROSATE CALCIUM 333 MG TABLET (CAMPRAL) PO SCH ×2 (09:09→20:50)
[2020-12-27 09:10] VITALS: BP 121/79
[2020-12-27] MEDS: NALTREXONE 50 MG TAB PO SCH (09:11)
[2020-12-27] MEDS: ASPIRIN 81 MG CHEW TABLET PO SCH (09:11)
[2020-12-27] MEDS: DOCUSATE SODIUM 100MG CAPSULE PO SCH ×2 (09:11→20:50)
[2020-12-27] MEDS: THIAMINE 100 MG TAB PO SCH (09:11)
[2020-12-27] MEDS: MULTIVITAMINS/MINERALS THERAP 1 TAB PO SCH (09:13)
[2020-12-27 13:15] VITALS: BP 109/73
[2020-12-27 17:20] VITALS: BP 130/78
[2020-12-27] MEDS: ENOXAPARIN 40MG/0.4ML SYRINGE (J1650 PER 10MG) SC SCH (20:50)
[2020-12-27 22:00] VITALS: BP 105/69
[2020-12-28 06:00] VITALS: BP 125/79
[2020-12-28 09:08] LABS: HEMATOCRIT 29.5 % (42.0-52.0); MEAN CORPUSCULAR HEMOGLOBIN 30.1 pg (27.0-33.0); MEAN CORPUSCULAR HGB CONC 33.9 g/dl (32.0-36.5); MEAN CORPUSCULAR VOLUME 88.9 fl (80.0-96.0); PLATELET COUNT, AUTOMATED 451 10^3/uL (150-450); RED BLOOD COUNT 3.32 10^6/uL (4.30-6.10); WHITE BLOOD COUNT 5.5 10^3/uL (4.0-10.0)
[2020-12-28] MEDS: NALTREXONE 50 MG TAB PO SCH (09:29)
[2020-12-28] MEDS: DOCUSATE SODIUM 100MG CAPSULE PO SCH (09:29)
[2020-12-28] MEDS: MULTIVITAMINS/MINERALS THERAP 1 TAB PO SCH (09:29)
[2020-12-28] MEDS: THIAMINE 100 MG TAB PO SCH (09:29)
[2020-12-28] MEDS: ACAMPROSATE CALCIUM 333 MG TABLET (CAMPRAL) PO SCH (09:29)
[2020-12-28] MEDS: OXAZEPAM 10 MG CAP PO SCH (09:29)
[2020-12-28] MEDS: FERROUS GLUCONATE 324 MG TAB PO SCH (09:29)
[2020-12-28] MEDS: ASPIRIN 81 MG CHEW TABLET PO SCH (09:29)
[2020-12-28] MEDS: FOLIC ACID 1 MG TAB PO SCH (09:29)
[2020-12-28 09:40] LABS: BLOOD UREA NITROGEN 7 MG/DL (7-18); CALCIUM LEVEL 8.8 MG/DL (8.8-10.2); CARBON DIOXIDE LEVEL 29 MEQ/L (21-32); CHLORIDE LEVEL 101 MEQ/L (98-107); GLOMERULAR FILTRATION RATE > 60.0 (>49); GLUCOSE, FASTING 105 MG/DL (70-100); POTASSIUM SERUM 4.2 MEQ/L (3.5-5.1); SODIUM LEVEL 137 MEQ/L (136-145)
[2020-12-28] MEDS ORDERED: FOLI1TAB11 PO (09:49)
[2020-12-28] MEDS ORDERED: THIA100TA PO (09:49)
[2020-12-28] MEDS ORDERED: ACAM0.05 PO (09:49)
[2020-12-28] MEDS ORDERED: FERR32TA PO (09:49)
[2020-12-28] MEDS ORDERED: NALT50TA4 PO (09:49)
[2020-12-28] MEDS ORDERED: OXAZ10CA3 PO (09:49)
[2020-12-28] MEDS ORDERED: VITMTA PO (09:49)
--- NOTE | 2020-12-28 12:30 | DS.PDOC ---
Discharge Summary General Date of Admission Dec 10, 2020 at 07:45 Date of Discharge 12/28/20 Discharge Summary PROCEDURES PERFORMED DURING STAY: [None]. DISCHARGE DIAGNOSES: Acute alcoholic pancreatitis Alcohol withdrawal Chronic alcohol use disorder Severe protein calorie malnutrition Debility, gait instability and recurrent falls Left adrenal nodule needs outpatient follow-up Anemia Dysphagia COMPLICATIONS/CHIEF COMPLAINT: TIA. HOSPITAL COURSE: This is 65-year-old male with past medical history of alcohol abuse, severe protein calorie malnutrition, ex-smoker was admitted on 12/08/2020. He had multiple falls over several days prior to the admission and his family has been concerned about him and summoned emergency medical service (EMS). When EMS arrived, they thought he was having a facial droop, as well as left-sided weakness with slurred speech so was brought to the emergency room. He was admitted to rule out TIA versus CVA. He had work-up with MRI of brain on 12/08/2020 showed mild age related changes without acute abnormality. Hospital course was Complicated by alcohol withdrawal and alcoholic pancreatitis. He also developed fluid overload from the fluid administered during the treatment of pancreatitis and alcohol withdrawal. He was severely malnourished and debilitated. He was evaluated by physical therapy and initially they recommended subacute rehab. While waiting to get a rehab bed he continued to work with physical therapy and he is strength has been slowly improving. At this time it is felt that patient can be discharged home with 24 into 7 care. Patient's and son have indicated that they will be able to provide him the 24 into 7 care needed at this time and would like to take him home. Acute alcoholic pancreatitis Improved Repeat CT abdomen pelvis shows no pseudocyst or pancreatic necrosis Tolerating mechanical soft diet Alcohol withdrawal Resolved Have started weaning Serax Continue multivitamin, thiamine and folate. Alcohol use disorder We will continue with acamprosate, naltrexone Bilateral pleural effusions secondary to fluid overload from IV fluids Now resolved Left adrenal nodule dedicated adrenal CT for further evaluation. Follow-up with PCP Debility Continue PT OT on discharge Severe protein calorie malnutrition BMI of 16.7 , wasting of small muscles of hands and feet, bitemporal wasting Surface Water Technician consulted and recommends Ensure Dysphagia/aspiration risk. Tolerating mechanical soft diet Follow aspiration precautions on discharge Anemia No vitamin B12 or folic acid deficiency, has mild iron deficiency because of low TSAT No overt GI bleed PPI Continue iron supplementation Disposition subacute rehab placement DISCHARGE MEDICATIONS: Please see below. ALLERGIES: Please see below. PHYSICAL EXAMINATION ON DISCHARGE: VITAL SIGNS: Please see below. GENERAL: Awake alert oriented x3 appears weak and tremulous HEENT: Normocephalic atraumatic moist mucous membranes, bitemporal wasting NECK: Supple no JVD CARDIOVASCULAR EXAMINATION: Tachycardic, regular heart sounds, no rub murmur gallop RESPIRATORY EXAMINATION: Bilateral clear to auscultation ABDOMINAL EXAMINATION: Soft, scaphoid, nontender, bowel sounds present EXTREMITIES: No edema, wasting of small muscles of hand and feet LABORATORY DATA: Please see below. ACTIVITY: [As tolerated]. DIET: As tolerated DISPOSITION: Home with services DISCHARGE INSTRUCTIONS: Follow up with PMD in 1 week Refrain from alcohol DISCHARGE CONDITION: [Stable]. TIME SPENT ON DISCHARGE: 35 minutes. Vital Signs/I&Os Vital Signs Date Time Temp Pulse Resp B/P (MAP) Pulse Ox O2 Delivery O2 Flow Rate FiO2 12/28/20 06:00 97.8 85 16 125/79 (94) 98 Room Air I&O- Last 24 Hours up to 6 AM 12/28/20 06:00 Intake Total 750 ml Output Total 550 ml Balance 200 ml Laboratory Data Labs 24H Laboratory Tests 2 12/28/20 08:37: Nucleated Red Blood Cells % (auto) 0.0, Anion Gap 7L, Glomerular Filtration Rate > 60.0, Calcium Level 8.8 CBC/BMP Laboratory Tests 12/28/20 08:37 Discharge Medications Scheduled Acamprosate Calcium (Acamprosate Calcium) 333 Mg Tablet.dr, 666 MG PO BID Ferrous Gluconate (Ferrous Gluconate) 324 Mg Tablet, 324 MG PO BID Folic Acid (Folic Acid) 1 Mg Tablet, 1 MG PO DAILY Multivitamins (Thera M Plus Tablet) 1 Each Tablet, 1 TAB PO DAILY Naltrexone HCl (Naltrexone HCl) 50 Mg Tablet, 50 MG PO DAILY Oxazepam (Oxazepam) 10 Mg Capsule, 10 MG PO ASDIRECTED 1 cpa twice a day x 3 days then 1 cap daily at night x 3 days then stop. Thiamine Hcl (Vitamin B-1) 100 Mg Tablet, 100 MG PO DAILY Allergies Coded Allergies: Penicillins (Verified Allergy, Intermediate, SWELLS UP, 12/08/20) CHELSY ORDONEZ MD Dec 28, 2020 12:30
== END 2020-12-28 13:40 | disposition home health service (06) | DRG 438 ==
LOC: M ED 13:30 → EDBD 13:30 → M ED INP 13:31 → M PCU 21:33 → OBSVTOIN 12-10 07:45 → M MSPAV 12-18 14:54
PROVIDERS: ADMIT Internal Medicine; ATTEND Internal Medicine Nephrology
PROC: 02HV33Z Insertion of Infusion Device into Superior Vena Cava, Percutaneous Approach (ICD-10-PCS; principal; 2020-12-13 15:00)
DX: K85.20 Alcohol induced acute pancreatitis without necrosis or infection (principal); E43 Unspecified severe protein-calorie malnutrition; G93.41 Metabolic encephalopathy; F10.231 Alcohol dependence with withdrawal delirium; E87.1 Hypo-osmolality and hyponatremia; M62.82 Rhabdomyolysis; R29.6 Repeated falls; R26.89 Other abnormalities of gait and mobility; D64.9 Anemia, unspecified; R13.10 Dysphagia, unspecified; E27.9 Disorder of adrenal gland, unspecified; Z87.891 Personal history of nicotine dependence; Z79.899 Other long term (current) drug therapy; Z88.0 Allergy status to penicillin; Z86.73 Personal history of transient ischemic attack (TIA), and cerebral infarction without residual deficits

== ENCOUNTER → 2021-01-04 | Outpatient (REF) | payer OTHER ==
[~2021-01-04] MED LIST changes: +ACAM0.05 PO; +FERR32TA PO; +NALT50TA4 PO; +OXAZ10CA3 PO
[2021-01-04 18:26] LABS: BASO # 0.1 10^3/uL (0.0-0.2); BASO % 0.8 % (0.0-1.0); EOS # 0.3 10^3/uL (0.0-0.5); EOS % 4.3 % (0.0-3.0); HEMATOCRIT 32.8 % (42.0-52.0); HEMOGLOBIN 10.6 g/dl (13.5-17.5); LYMPH # 1.6 10^3/uL (1.5-5.0); LYMPH % 26.1 % (24.0-44.0); MEAN CORPUSCULAR HEMOGLOBIN 29.1 pg (27.0-33.0); MEAN CORPUSCULAR HGB CONC 32.3 g/dl (32.0-36.5); MEAN CORPUSCULAR VOLUME 90.1 fl (80.0-96.0); MONO # 0.7 10^3/uL (0.0-0.8); NEUTROPHILS # 3.5 10^3/uL (1.5-8.5); NEUTROPHILS % 57.5 % (36.0-66.0); PLATELET COUNT, AUTOMATED 535 10^3/uL (150-450); RED BLOOD COUNT 3.64 10^6/uL (4.30-6.10)
[2021-01-04 19:00] LABS: ALBUMIN 2.4 GM/DL (3.2-5.2); ALT/SGPT 25 U/L (12-78); AMYLASE 178 U/L (25-115); BILIRUBIN,TOTAL 0.2 MG/DL (0.2-1.0); BLOOD UREA NITROGEN 9 MG/DL (7-18); CALCIUM LEVEL 8.9 MG/DL (8.8-10.2); CARBON DIOXIDE LEVEL 28 MEQ/L (21-32); CHLORIDE LEVEL 106 MEQ/L (98-107); CREATININE FOR GFR 0.77 MG/DL (0.70-1.30); GLOMERULAR FILTRATION RATE > 60.0 (>49); GLUCOSE, FASTING 91 MG/DL (70-100); LIPASE 433 U/L (73-393); SODIUM LEVEL 139 MEQ/L (136-145); TOTAL PROTEIN 7.3 GM/DL (6.4-8.2)
== END ==
LOC: M LAB REF 16:54
PROVIDERS: ATTEND Family Medicine Addiction Medicine
DX: K85.90 Acute pancreatitis without necrosis or infection, unspecified (principal)

== ENCOUNTER → 2021-02-05 | Outpatient (REF) | payer OTHER ==
[2021-02-05 17:58] LABS: BASO % 0.5 % (0.0-1.0); EOS # 0.1 10^3/uL (0.0-0.5); EOS % 1.1 % (0.0-3.0); HEMATOCRIT 38.2 % (42.0-52.0); HEMOGLOBIN 12.2 g/dl (13.5-17.5); LYMPH # 2.1 10^3/uL (1.5-5.0); LYMPH % 39.2 % (24.0-44.0); MEAN CORPUSCULAR HEMOGLOBIN 27.5 pg (27.0-33.0); MEAN CORPUSCULAR HGB CONC 31.9 g/dl (32.0-36.5); MONO # 0.5 10^3/uL (0.0-0.8); MONO % 9.7 % (2.0-8.0); NEUTROPHILS # 2.7 10^3/uL (1.5-8.5); NEUTROPHILS % 49.3 % (36.0-66.0); PLATELET COUNT, AUTOMATED 349 10^3/uL (150-450); RED BLOOD COUNT 4.44 10^6/uL (4.30-6.10); WHITE BLOOD COUNT 5.5 10^3/uL (4.0-10.0)
[2021-02-05 18:37] LABS: ALBUMIN 2.9 GM/DL (3.2-5.2); ALT/SGPT 16 U/L (12-78); AMYLASE 175 U/L (25-115); BILIRUBIN,TOTAL 0.3 MG/DL (0.2-1.0); BLOOD UREA NITROGEN 9 MG/DL (7-18); CALCIUM LEVEL 9.1 MG/DL (8.8-10.2); CARBON DIOXIDE LEVEL 27 MEQ/L (21-32); CHLORIDE LEVEL 105 MEQ/L (98-107); CREATININE FOR GFR 0.73 MG/DL (0.70-1.30); FOLATE 12.2 NG/ML; GLOMERULAR FILTRATION RATE > 60.0 (>49); GLUCOSE, FASTING 84 MG/DL (70-100); IRON (FE) 37 UG/DL (65-175); LIPASE 622 U/L (73-393); POTASSIUM SERUM 3.6 MEQ/L (3.5-5.1); SODIUM LEVEL 140 MEQ/L (136-145); TOTAL PROTEIN 7.2 GM/DL (6.4-8.2); VITAMIN B12 LEVEL 159 PG/ML
== END ==
LOC: M LAB REF 17:03
PROVIDERS: ATTEND Family Medicine Addiction Medicine
DX: D64.9 Anemia, unspecified (principal); K85.90 Acute pancreatitis without necrosis or infection, unspecified

== ENCOUNTER → 2021-02-19 | Outpatient (CLI) | payer OTHER ==
[~2021-02-19] MED LIST changes: +ISOVUE-370 76% 100ML VIAL As Ordered ONE
--- NOTE | 2021-02-27 13:24 | REP ---
INDICATION: ADRENAL ADENOMA. COMPARISON: Multiple the latest 12/17/2020 TECHNIQUE: Standard helical technique before and after the intravenous administration of 100 cc Isovue 370 FINDINGS: The lung bases have cleared since the prior exam when bilateral pleural effusions were identified. The pre contrast enhanced portion examination shows consistent low density in the left adrenal gland nodule which has a maximal dimension of 1.9 cm. There are no nephroliths or choleliths. Hepatic and splenic densities are within normal limits. The contrast-enhanced portion exam shows the liver, gallbladder, spleen, pancreas, right adrenal gland, and kidneys to be within normal limits. There is minimal enhancement of the left adrenal gland nodule. The enhancement pattern, however, is less than what was seen on the prior exam of 12/14/2020 and 12/17/2020. The abdominal aorta and para-aortic regions are stable. There is no significant change in appearance of the bowel loops or the mesenteries. There is no evidence of free fluid or free air. There is no change in the osseous structures. IMPRESSION: The left adrenal nodule is benign. There is no evidence of acute disease. There is a persistent fullness of the pancreatic head. No enhancing masses, however, are identified. Consider further evaluation with pre and post gadolinium enhanced pancreatic MRI. <Electronically signed by Sebastián Ibanez > 02/27/21 [id number]
== END ==
LOC: M RAD 08:05
PROVIDERS: ATTEND Family Medicine Addiction Medicine
DX: D35.02 Benign neoplasm of left adrenal gland (principal)
CPT/HCPCS: 74170; Q9967

== ENCOUNTER 2021-11-14 09:50 | Inpatient (IN) | payer OTHER ==
[~2021-11-14] VITALS: Ht 170.2 cm; Wt 49.2 kg
[2021-11-14] VITALS (24 sets, daily range): BP systolic 36–124; BP diastolic 36–54
[~2021-11-14 09:50] MED LIST changes: -ISOVUE-370 76% 100ML VIAL As Ordered ONE; +PANTOPRAZOLE 40MG VIAL IV SCH; +dexameTHASONE 20MG/5ML VIAL (J1100 PER 1MG) IV SCH
[2021-11-14] MEDS ORDERED: DEXTROSE 50% 50 ML SYRINGE IV STA (10:05)
[2021-11-14] MEDS ORDERED: CEFEPIME HCL 2 GM in D5W MINI-BAG PLUS 50 ML IV ONE (10:15)
[2021-11-14] MEDS ORDERED: NS 1,000 ML IV ONE (10:15)
[2021-11-14] MEDS ORDERED: NS 1,480 ML in IV 1 EA IV ONE (10:15)
[2021-11-14 10:26] LABS: HEMATOCRIT 28.9 % (42.0-52.0); HEMOGLOBIN 8.9 g/dl (13.5-17.5); MEAN CORPUSCULAR HEMOGLOBIN 30.8 pg (27.0-33.0); MEAN CORPUSCULAR HGB CONC 30.8 g/dl (32.0-36.5); PLATELET COUNT, AUTOMATED 319 10^3/uL (150-450); RED BLOOD COUNT 2.89 10^6/uL (4.30-6.10); WHITE BLOOD COUNT 12.8 10^3/uL (4.0-10.0)
[2021-11-14] MEDS ORDERED: HOME MED LIST COMPLETE! XX SCH (10:35)
[2021-11-14 10:39] LABS: INR 1.76; PROTHROMBIN TIME 20.9 SECONDS (12.7-14.5)
[2021-11-14 10:40] LABS: PARTIAL THROMBOPLASTIN TIME 55.5 SECONDS (25.9-37.0)
[2021-11-14] MEDS ORDERED: VASOPRESSIN INJ 20 UNITS/ML VIAL As Ordered ONE (10:40)
[2021-11-14 11:02] LABS: ATYPICAL LYMPH 1 % (0-5); LYMPHOCYTES 8 % (16-44); METAMYELOCYTES 12 % (0-0); MONOCYTES 2 % (0-5); MYELOCYTES 5 % (0-0); NEUTROPHILS 47 % (28-66)
[2021-11-14 11:03] LABS: ANISOCYTOSIS 1+; PLATELET ESTIMATE NORMAL (NORMAL); TOXIC VACUOLATION 1+
[2021-11-14] MEDS ORDERED: NOREPINEPHRINE/DEXTROSE 8 MG in IV 1 EA IV SCH (11:05)
[2021-11-14 11:08] LABS: ALBUMIN 1.3 GM/DL (3.2-5.2); BILIRUBIN,DIRECT 0.4 MG/DL (0.0-0.2); BILIRUBIN,TOTAL 0.6 MG/DL (0.2-1.0); C REACTIVE PROTEIN QUANTITATIV 30.3 MG/DL (0.00-0.30); TOTAL PROTEIN 5.4 GM/DL (6.4-8.2)
[2021-11-14] MEDS ORDERED: MIDAZOLAM INJ 2MG/2ML VIAL (J2250 PER 1MG) IV PRN (12:05)
[2021-11-14] MEDS ORDERED: ALBUTEROL SULFATE 2.5 MG/0.5 ML INH NEB SOLN NEB PRN (12:05)
[2021-11-14] MEDS ORDERED: VANCOMYCIN INTERMITTENT/PULSE DOSING BY CLINICAL PHARMACIST PER DOSING PROTOCOL XX SCH (12:55)
[2021-11-14] MEDS ORDERED: VASOPRESSIN INJ 20 UNITS in NS 499 ML IV SCH (13:00)
[2021-11-14] MEDS ORDERED: MIDAZOLAM HCL 100 MG in D5W 80 ML IV SCH (13:00)
[2021-11-14] MEDS ORDERED: PHENYLEPHRINE 10MG/ML 1ML VIAL (J2370 PER 1) As Ordered ONE ×2 (13:05→13:07)
[2021-11-14] MEDS ORDERED: EPINEPHrine 1MG/10ML SYRINGE 1.5IN As Ordered ONE (13:07)
[2021-11-14 13:19] LABS: ABG BASE EXCESS -24.9 (-2.0-2.0); ABG HCO3 7.1 MEQ/L (22.0-26.0); ABG O2 SATURATION 95.6 % (95.0-99.0); ABG PARTIAL PRESSURE CO2 44.4 mmHg (35.0-45.0); ABG STANDARD HCO3 5.6 MEQ/L (22.0-26.0); ABG TOTAL CO2 8.5 MEQ/L (23.0-31.0); ABG pH (ARTERIAL) 6.822 UNITS (7.350-7.450)
[2021-11-14] MEDS ORDERED: SODIUM BICARBONATE 8.4% INJ 50 ML SYRINGE As Ordered ONE ×2 (13:21→13:28)
[2021-11-14] MEDS ORDERED: EPINEPHrine 1MG/10ML SYRINGE 1.5IN IV STA (13:51)
[2021-11-14] MEDS ORDERED: SODIUM BICARBONATE 8.4% INJ 50 ML SYRINGE IV STA (13:51)
[2021-11-14] MEDS ORDERED: LR 1,000 ML IV ONE (13:55)
[2021-11-14] MEDS ORDERED: SODIUM BICARBONATE 150 MEQ in D5W 1,000 ML IV SCH ×2 (13:55→14:00)
[2021-11-14 13:58] LABS: CALCIUM LEVEL 7.2 MG/DL (8.8-10.2); CREATININE FOR GFR 1.9 MG/DL (0.70-1.30); GLOMERULAR FILTRATION RATE 46.3 (>49); POTASSIUM SERUM 4.6 MEQ/L (3.5-5.1)
[2021-11-14] MEDS ORDERED: VANCOMYCIN HCL 1,000 MG, VIAL MATE ADAPTER 1 EACH in NS 250 ML IV ONE (14:00)
[2021-11-14] MEDS ORDERED: PHENYLEPHRINE HCL INJ 50 MG in D5W 495 ML IV SCH (14:00)
[2021-11-14] MEDS ORDERED: D5W IV SCH ×2 (15:00)
[2021-11-14] MEDS ORDERED: HYDROCORTISONE 100 MG/2 ML VIAL (J1720 PER 1) IV SCH (15:00)
[2021-11-14] MEDS ORDERED: EPINEPHRINE HCL IV SCH ×2 (15:00)
[2021-11-14 15:04] LABS: ABG BASE EXCESS -18.7 (-2.0-2.0); ABG HCO3 9.7 MEQ/L (22.0-26.0); ABG O2 SATURATION 97.8 % (95.0-99.0); ABG PARTIAL PRESSURE O2 143.8 mmHg (75.0-100.0); ABG STANDARD HCO3 9.8 MEQ/L (22.0-26.0); ABG TOTAL CO2 10.8 MEQ/L (23.0-31.0); ABG pH (ARTERIAL) 7.074 UNITS (7.350-7.450)
[2021-11-14] MEDS ORDERED: SODIUM BICARBONATE 8.4% INJ 50 ML SYRINGE ONE ×2 (16:59→17:41)
[2021-11-14] MEDS ORDERED: EPINEPHrine 1MG/10ML SYRINGE 1.5IN ONE ×2 (16:59→17:41)
[2021-11-14] MEDS ORDERED: CHLORHEXIDINE GLUCONATE 0.12 % 15ML UDC (PERIDEX ORAL RINSE) MT SCH (21:00)
[2021-11-14] MEDS ORDERED: HEPARIN SOD (PORCINE) 5000UNITS/ML 1ML VIAL/SYRINGE SC SCH (22:00)
[2021-11-15] MEDS ORDERED: PHENYLEPHRINE HCL INJ 50 MG in D5W 495 ML IV SCH (02:00)
[2021-11-15] MEDS ORDERED: CEFEPIME HCL 1 GM in D5W MINI-BAG PLUS 50 ML IV SCH (09:00)
== END 2021-11-14 17:00 | disposition expired | DRG 296 ==
LOC: M ED 09:50 → M ICU 12:05 → M ED INP 12:05 → ENRESERV 15:06 → M ICU 15:36
PROVIDERS: ADMIT Internal Medicine Pulmonary Disease; ATTEND Internal Medicine Pulmonary Disease
PROC: 02HV33Z Insertion of Infusion Device into Superior Vena Cava, Percutaneous Approach (ICD-10-PCS; principal; 2021-11-14)
PROC: 5A1935Z Respiratory Ventilation, Less than 24 Consecutive Hours (ICD-10-PCS; 2021-11-14)
DX: I46.9 Cardiac arrest, cause unspecified (principal); U07.1 COVID-19; J96.01 Acute respiratory failure with hypoxia; J12.82 Pneumonia due to coronavirus disease 2019; K72.01 Acute and subacute hepatic failure with coma; R40.20 Unspecified coma; E46 Unspecified protein-calorie malnutrition; N17.9 Acute kidney failure, unspecified; E87.2 Acidosis; R57.9 Shock, unspecified; D50.9 Iron deficiency anemia, unspecified; F10.10 Alcohol abuse, uncomplicated; F17.210 Nicotine dependence, cigarettes, uncomplicated; Z91.14 Patient's other noncompliance with medication regimen; Z88.0 Allergy status to penicillin; I49.01 Ventricular fibrillation